=== PATIENT | male | born 1970 | race Caucasian/White ===

== ENCOUNTER 2016-04-03 19:33 | Inpatient (IN) | payer OTHER ==
[~2016-04-03] VITALS: Ht 188 cm; Wt 106.5 kg
[~2016-04-03 19:33] MED LIST: DOXY100T PO; SULF-154 PO; Z.0.NO CURRENT MEDS
[2016-04-03 19:56] VITALS: BP 115/82; PULSE 125; RESP 18; TEMP 101.4; O2SAT 98
[2016-04-03 20:09] VITALS: BP 123/83; PULSE 122; RESP 18; O2SAT 96
[2016-04-03] MEDS ORDERED: ONDANSETRON HCL 4 MG/2 ML VIAL IVP ONE (20:45)
[2016-04-03] MEDS ORDERED: SODIUM CHLORIDE 0.9% FLUSH 5 ML FLUSH IVF PRN (20:45)
--- NOTE | 2016-04-03 20:47 | PD ---
HPI Chief Complaint: GI Complaint Time Seen by Provider: 20:35 Travel History International Travel<30 days: No Contact w/Intl Traveler<30days: No Traveled to known affect area: No History of Present Illness HPI The patient is a 46-year-old male that complains of bilateral lower abdominal pain along with nausea and vomiting and some slight diarrhea since yesterday. The patient states he has stomach issues in the past and around the of this month has an appointment with gastroenterology for endoscopy. He states he did eat deer main that no one else had yesterday. He thinks he has had a fever area he denies vomiting any blood or any blood in the stool. He has never had any abdominal surgeries. His primary care physician is Dr. Julio Bryan at [facility]. [facility] Past Medical History Anxiety: Yes Diminished Hearing: No ?: Not Social History Alcohol Use: No Tobacco Use: Yes (1 PPD) Substance Use: No Allergies-Medications (Allergen,Severity, Reaction): Coded Allergies: Ciprofloxacin (Verified Allergy, Severe, RASH, 04/03/16) Reported Meds & Prescriptions Reported Meds & Active Scripts Active Review of Systems Except as stated in HPI: all other systems reviewed are Neg Physical Exam Narrative GENERAL: The patient is alert, oriented 3 in moderate apparent distress with his bilateral lower quadrant pain. His vital signs show temperature 101.4 with heart rate of 125 but are otherwise normal. He does appear moderately dehydrated. SKIN: Warm and dry. HEAD: Atraumatic. Normocephalic. EYES: Pupils equal and round. No scleral icterus. No injection or drainage. ENT: No nasal bleeding or discharge. Mucous membranes pink and slightly dry. NECK: Trachea midline. No JVD. There is no meningismus present. CARDIOVASCULAR: Regular rate and rhythm. No murmur appreciated. RESPIRATORY: No accessory muscle use. Clear to auscultation. Breath sounds equal bilaterally. GASTROINTESTINAL: Abdomen shows slight guarding in the bilateral lower quadrants to direct palpation, nondistended. Hepatic and splenic margins not palpable. No rebound is present. Direct palpation produces bilateral lower quadrant abdominal pain. MUSCULOSKELETAL: No obvious deformities. No clubbing. No cyanosis. No edema. NEUROLOGICAL: Awake and alert. No obvious cranial nerve deficits. Motor grossly within normal limits. Normal speech. PSYCHIATRIC: Appropriate mood and affect; insight and judgment normal. Data Data Last Documented VS Vital Signs Date Time Temp Pulse Resp B/P Pulse Ox O2 Delivery O2 Flow Rate FiO2 04/03/16 20:09 122 18 123/83 96 04/03/16 19:56 101.4 Orders Complete Blood Count With Diff (04/03/16 20:42) Comprehensive Metabolic Panel (04/03/16 20:42) Lipase (04/03/16 20:42) Urinalysis - C+S If Indicated (04/03/16 20:42) Ct Abd/Pel W Iv Contrast(Rout) (04/03/16 20:42) Iv Access Insert/Monitor (04/03/16 20:42) Ecg Monitoring (04/03/16 20:42) Oximetry (04/03/16 20:42) Ondansetron Inj (Zofran Inj) (04/03/16 20:45) Sodium Chloride 0.9% Flush (Ns Flush) (04/03/16 20:45) Iohexol 350 Inj (Omnipaque 350 Inj) (04/03/16 21:25) Metronidazole 500 Mg Inj (Flagyl 500 Mg (04/03/16 22:00) Ketorolac Inj (Toradol Inj) (04/03/16 22:00) Ampicillin-Sulbactam Inj (Unasyn Inj) (04/03/16 22:30) Labs Laboratory Tests Test 04/03/16 04/03/16 21:00 22:10 White Blood Count 18.7 TH/MM3 Red Blood Count 5.52 MIL/MM3 Hemoglobin 15.7 GM/DL Hematocrit 47.3 % Mean Corpuscular Volume 85.7 FL Mean Corpuscular Hemoglobin 28.5 PG Mean Corpuscular Hemoglobin 33.2 % Concent Red Cell Distribution Width 12.3 % Platelet Count 261 TH/MM3 Mean Platelet Volume 7.1 FL Neutrophils (%) (Auto) 88.4 % Lymphocytes (%) (Auto) 3.6 % Monocytes (%) (Auto) 5.3 % Eosinophils (%) (Auto) 0.1 % Basophils (%) (Auto) 2.6 % Neutrophils # (Auto) 16.5 TH/MM3 Lymphocytes # (Auto) 0.7 TH/MM3 Monocytes # (Auto) 1.0 TH/MM3 Eosinophils # (Auto) 0.0 TH/MM3 Basophils # (Auto) 0.5 TH/MM3 CBC Comment DIFF FINAL Differential Comment Sodium Level 137 MEQ/L Potassium Level 4.0 MEQ/L Chloride Level 100 MEQ/L Carbon Dioxide Level 25.8 MEQ/L Anion Gap 11 MEQ/L Blood Urea Nitrogen 13 MG/DL Creatinine 1.20 MG/DL Estimat Glomerular Filtration 65 ML/MIN Rate Random Glucose 134 MG/DL Calcium Level 8.7 MG/DL Total Bilirubin 0.8 MG/DL Aspartate Amino Transf 11 U/L (AST/SGOT) Alanine Aminotransferase 25 U/L (ALT/SGPT) Alkaline Phosphatase 86 U/L Total Protein 7.5 GM/DL Albumin 3.5 GM/DL Lipase 75 U/L Urine Collection Type CLEAN CATCH Urine Color YELLOW Urine Turbidity CLEAR Urine pH 5.5 Urine Specific [place] GREATER THAN 1.035 Urine Protein NEG mg/dL Urine Glucose (UA) NEG mg/dL Urine Ketones NEG mg/dL Urine Occult Blood TRACE Urine Nitrite NEG Urine Bilirubin NEG Urine Leukocyte Esterase NEG Urine RBC 0-3 /hpf Urine Squamous Epithelial 0-5 /hpf Cells Urine Mucus FEW /lpf Microscopic Urinalysis Comment CULT NOT INDICATED MDM Medical Decision Making Medical Screen Exam Complete: Yes Emergency Medical Condition: Yes Medical Record Reviewed: Yes Interpretation(s) The CBC shows a white count of 18,700 with 88% neutrophils but is otherwise unremarkable. The complete metabolic profile shows a glucose of 134, GFR of 65 but is otherwise normal. Lipase is normal. The CT abdomen/pelvis with IV contrast shows acute diverticulitis involving the mid sigmoid colon with moderate collection of extraluminal air in the region of the focal diverticulitis. Differential Diagnosis Acute diverticulitis with perforation, acute diverticulitis with perforation/ abscess formation, acute diverticulitis uncomplicated, colitis, acute appendicitis, sepsis Narrative Course The patient has acute diverticulitis with perforation. There is no evidence of abscess formation at this time. This certainly is consistent with the patient' s clinical findings of guarding in the lower quadrants. Plan: The patient will be admitted to the [facility] service. He will be given IV Flagyl 500 mg 3 times daily and 3 g Unasyn. The patient will be admitted to Dr. Fer Rojo. Procedures EKG Prior to Arrival: No EKG Not Completed: EKG Not Medically Necessary Sepsis Criteria SIRS Criteria (2 or more): Temp > 100.9 or < 96.8, Heart rate over 90, WBC > 36589, < 4000 or > 10% bands Sepsis Criteria (SIRS+source): Infect source susp/known Diagnosis Primary Impression: Diverticulitis of colon with perforation Admitting Information Admitting Physician Requests: Admit Solo Curry MD Apr 03, 2016 20:47
[2016-04-03 21:06] LABS: AUTOMATED NEUTROPHIL # 16.5 TH/MM3 (1.8-7.7); BASOPHIL # 0.5 TH/MM3 (0-0.2); BASOPHIL % 2.6 % (0.0-2.0); EOSINOPHIL % 0.1 % (0.0-4.0); HEMATOCRIT 47.3 % (39.0-51.0); LYMPH % 3.6 % (9.0-44.0); LYMPHOCYTE # 0.7 TH/MM3 (1.0-4.8); MEAN CELL VOLUME 85.7 FL (80.0-100.0); MEAN CORPUSCULAR HEMOGLOBIN 28.5 PG (27.0-34.0); MEAN CORPUSCULAR HGB CONC 33.2 % (32.0-36.0); MONO % 5.3 % (0.0-8.0); NEUT % 88.4 % (16.0-70.0); PLATELET COUNT 261 TH/MM3 (150-450); RED BLOOD COUNT 5.52 MIL/MM3 (4.50-5.90); RED CELL DISTRIBUTION WIDTH 12.3 % (11.6-17.2); WHITE BLOOD COUNT 18.7 TH/MM3 (4.0-11.0)
[2016-04-03 21:17] LABS: HEMO FLAGS DIFF FINAL
[2016-04-03 21:20] LABS: CHLORIDE 100 MEQ/L (98-107); SODIUM (NA) 137 MEQ/L (136-145)
[2016-04-03 21:24] LABS: ANION GAP 11 MEQ/L (5-15); BICARBONATE 25.8 MEQ/L (21.0-32.0); BLOOD UREA NITROGEN 13 MG/DL (7-18)
[2016-04-03] MEDS ORDERED: IOHEXOL 350 MG/ML 10 ML VIAL (for RAD DIAG) IV ONE (21:25)
[2016-04-03 21:27] LABS: ALT (GPT) 25 U/L (12-78); AST (GOT) 11 U/L (15-37); GLOMERULAR FILTRATION RATE 65 ML/MIN (>89)
[2016-04-03 21:28] LABS: TOTAL BILIRUBIN ADULT 0.8 MG/DL (0.2-1.0)
[2016-04-03 21:29] LABS: ALKALINE PHOSPHATASE 86 U/L (45-117)
--- NOTE | 2016-04-03 21:43 | RADHPO ---
EXAM DATE/TIME: 04/03/2016 21:04 [place] COMPARISON: No previous studies available for comparison. INDICATIONS : Bilateral mid lower quadrant pain for two days. IV CONTRAST: 95 cc Omnipaque 300 (iohexol) IV ORAL CONTRAST: No oral contrast ingested. RADIATION DOSE: 17.94 CTDIvol (mGy) MEDICAL HISTORY : None SURGICAL HISTORY : None. ENCOUNTER: Initial ACUITY: 2 days PAIN SCALE: 7/10 LOCATION: Bilateral lower quadrant TECHNIQUE: Volumetric scanning of the abdomen and pelvis was performed. Using automated exposure control and ad justment of the mA and/or kV according to patient size, radiation dose was kept as low as reasonably achievable to obtain optimal diagnostic quality images. FINDINGS: LOWER LUNGS: The visualized lower lungs are clear. LIVER: Homogeneous density without lesion. There is no dilation of the biliary tree. No calcified gallston es. SPLEEN: Normal size without lesion. PANCREAS: Within normal limits. KIDNEYS: Normal in size and shape. There is no mass, stone or hydronephrosis. ADRENAL GLANDS: Within normal limits. VASCULAR: There is no aortic aneurysm. BOWEL/MESENTERY: There is evidence of acute diverticulitis involving the mid sigmoid colon with a moderate collection of extraluminal air in the region of the focal diverticulitis suggesting localized perforation. No ex traluminal fluid is identified. Dr. Curry was called with the findings of the examination at 9:40 PM on 04/03/16. The appendix is normal. ABDOMINAL WALL: Within normal limits. RETROPERITONEUM: There is no lymphadenopathy. BLADDER: No wall thickening or mass. REPRODUCTIVE: Within normal limits. INGUINAL: There is no lymphadenopathy or hernia. MUSCULOSKELETAL: Within normal limits for patient age. CONCLUSION: Acute diverticulitis involving the mid sigmoid colon with a moderate collection of ex traluminal air in the region of the focal diverticulitis suggesting localized perforation. No extralu wei fluid is identified. Dr. Curry was called with the findings of the examination at 9:40 PM on 04/03/16. Neri Parra MD on April 03, 2016 at 21:35 Board Certified Radiologist. This report was verified electronically.
[2016-04-03] MEDS ORDERED: metroNIDAZOLE 500 MG INJ 100 ML IV ONE (22:00)
[2016-04-03] MEDS ORDERED: KETOROLAC TROMETHAMINE 60 MG/2 ML (IM) VIAL IVP ONE (22:00)
[2016-04-03 22:16] LABS: BLOOD, URINE TRACE (NEG); GLUCOSE,URINE NEG (NEG); KETONE, URINE NEG (NEG); NITRITE,URINE NEG (NEG); PH, URINE 5.5 (5.0-8.5)
[2016-04-03 22:25] LABS: METHOD OF COLLECTION CLEAN CATCH; URINE COLOR YELLOW (YELLW/STRAW)
[2016-04-03 22:26] LABS: MUCUS URINE FEW /lpf (OCC)
[2016-04-03 22:27] LABS: COMMENT (UR) CULT NOT INDICATED; CULTURE IF INDICATED CULT NOT INDICATED; RBC, URINE 0-3 /hpf (0-3); SQUAMOUS EPITHELIAL CELL URINE 0-5 /hpf (0-5)
[2016-04-03] MEDS ORDERED: ACETAMINOPHEN 325 MG TAB PO PRN (22:30)
[2016-04-03] MEDS ORDERED: SODIUM CHLORIDE 0.9% FLUSH 5 ML FLUSH IV PRN (22:30)
[2016-04-03] MEDS ORDERED: AMPICILLIN-SULBACTAM INJ 3 GM in SODIUM CHLORIDE 0.9% INJ 100 ML IV ONE (22:30)
[2016-04-03] MEDS ORDERED: FLUO-1 PO (22:35)
[2016-04-03] MEDS ORDERED: ONDANSETRON HCL 4 MG/2 ML VIAL IV ONE (23:00)
[2016-04-03] MEDS ORDERED: AMPICILLIN-SULBACTAM INJ 3 GM in SODIUM CHLORIDE 0.9% INJ 100 ML IV SCH (23:00)
[2016-04-03] MEDS: PANTOPRAZOLE SODIUM 40 MG VIAL IV PUSH SCH (23:00)
[2016-04-03] MEDS ORDERED: HYDROmorphone HCL PF 1 MG/ML VIAL IVP ONE (23:00)
[2016-04-03 23:10] VITALS: BP 98/56; PULSE 92; RESP 16; O2SAT 98
[2016-04-03 23:13] VITALS: BP 98/56; PULSE 92; RESP 16; O2SAT 98
[2016-04-03] MEDS: SODIUM CHLOR 0.9% 1000 ML INJ 1,000 ML IV SCH (23:20)
[2016-04-04] VITALS (7 sets, daily range): BP systolic 109–138; BP diastolic 72–81; PULSE 79–107; RESP 16–20; TEMP 97.5–99.5; O2SAT 94–97
[2016-04-04] MEDS: ACETAMINOPHEN/HYDROcodone 325 MG/5 MG TAB PO PRN ×3 (01:20→09:25)
[2016-04-04] MEDS ORDERED: AMPICILLIN-SULBACTAM INJ 3 GM in SODIUM CHLORIDE 0.9% INJ 100 ML IV SCH (05:00)
[2016-04-04] MEDS: SODIUM CHLOR 0.9% 1000 ML INJ 1,000 ML IV SCH ×3 (05:11→18:24)
[2016-04-04 06:21] LABS: AUTOMATED NEUTROPHIL # 12.2 TH/MM3 (1.8-7.7); BASOPHIL # 0.1 TH/MM3 (0-0.2); BASOPHIL % 0.7 % (0.0-2.0); EOSINOPHIL % 0.1 % (0.0-4.0); HEMATOCRIT 41.8 % (39.0-51.0); HEMO FLAGS DIFF FINAL; LYMPH % 8.7 % (9.0-44.0); LYMPHOCYTE # 1.3 TH/MM3 (1.0-4.8); MEAN CELL VOLUME 85.4 FL (80.0-100.0); MEAN CORPUSCULAR HEMOGLOBIN 29.6 PG (27.0-34.0); MEAN CORPUSCULAR HGB CONC 34.7 % (32.0-36.0); MONO % 10.2 % (0.0-8.0); NEUT % 80.3 % (16.0-70.0); PLATELET COUNT 233 TH/MM3 (150-450); RED CELL DISTRIBUTION WIDTH 12.1 % (11.6-17.2); WHITE BLOOD COUNT 15.1 TH/MM3 (4.0-11.0)
[2016-04-04 06:25] LABS: POTASSIUM 3.8 MEQ/L (3.5-5.1)
[2016-04-04 06:29] LABS: BICARBONATE 28.8 MEQ/L (21.0-32.0)
[2016-04-04] MEDS: SODIUM CHLORIDE 0.9% FLUSH 5 ML FLUSH IV SCH ×2 (08:13→20:51)
[2016-04-04] MEDS: ONDANSETRON HCL 4 MG/2 ML VIAL IV PRN (09:29)
[2016-04-04] MEDS: ALPRAZolam 0.25 MG TAB PO PRN ×2 (10:37→20:58)
--- NOTE | 2016-04-04 10:51 | MH ---
cc: ROSELINE PECK M.D. DATE OF ADMISSION: 04/03/2016 ADMISSION DIAGNOSIS Diverticulitis with perforation. HISTORY OF PRESENT ILLNESS Mr. Carrillo is a very pleasant 46-year-old gentleman who presented to the emergency room on Monday night after developing cramping abdominal pain the day prior. He states that he has been in fairly good health until the day prior to admission when he started feeling some abdominal cramping. He thought he might have been constipated, tried taking something to help him move his bowels, this did not relieve his symptoms. He also developed some nausea and what he felt like he might have been feverish. His symptoms continued to worsen until finally he presented to the emergency room. He denies any black or bloody stools. He does not have a history of problems with constipation or diarrhea regularly. He says his only GI problem is nausea after he eats and he tells me he is actually scheduled to see GI and a possible endoscopy later on this month. He states the pain with the nausea and vomiting was what prompted him to come to the emergency room as he normally does not seek medical attention. PAST MEDICAL HISTORY Past medical history is significant for anxiety. He has had no prior surgeries. ALLERGIES CIPRO. MEDICATIONS Medications include: Prozac, he is not sure of the dose, he says it is basically the regular dose people are on. HABITS He is a prior smoker. He does not consume alcohol. SOCIAL HISTORY He works for [employer] He has family locally. He is independent in activities of daily living. FAMILY HISTORY There is a family history of diabetes and heart disease. REVIEW OF SYSTEMS He denies chest pain, shortness of breath, cough or palpitations. He has not been lightheaded or dizzy when he has gotten up from the bed. He does say he is urinating and voiding well. He has no problems with lower extremity swelling or pain. PHYSICAL EXAMINATION VITAL SIGNS: Temperature is 98.4, pulse of 88, respirations 16, blood pressure is 115/75, pulse ox is 95% on room air. GENERAL: This is a very pleasant gentleman lying in the hospital bed. He is alert and oriented, cooperative. HEENT: He is normocephalic and atraumatic. EOM is intact. He has dry oral mucosa. His cheeks are a little bit flushed. NECK: His neck is supple. LUNGS: Clear to auscultation bilaterally. CARDIAC: His heart is regular. He is not tachycardic at this moment. ABDOMEN: Diminished bowel sounds, is diffusely tender in the mid to lower abdomen bilaterally, more pronounced in the left lower quadrant. He does have some guarding. EXTREMITIES: Show no clubbing, cyanosis or edema. LABORATORY DATA White count when he presented was 18.7 with a hemoglobin of 15.7, hematocrit of 47.3, platelet count of 261. Sodium was 137, potassium 4, BUN 13 with a creatinine of 1.2. LFTs were normal. His urine specific gravity was greater than 1.035. IMAGING STUDIES CT scan that was done is remarkable for acute diverticulitis involving the mid sigmoid colon with moderate collection of extraluminal air in the region of focal diverticulitis with localized perforation. There was no extraluminal fluid. ASSESSMENT/PLAN 46-year-old gentleman presenting with acute diverticulitis with perforation. At this point he has been admitted. He has been started on IV fluids. He is ALLERGIC TO CIPRO so he has been given Unasyn. We might change that to Zosyn. Maintain pain control. Colorectal surgery has been consulted. Continue to monitor him closely, monitor his vital signs and his abdominal exam closely. For his anxiety he did request something for his nerves as he is very apprehensive with the entire situation. I will try to determine the amount of Prozac he normally is on, as well as give him a low dose anxiolytic. Further recommendations as the case develops. Roseline Peck MD CSL/TLL /10:18 AM /10:36 AM
[2016-04-04] MEDS ORDERED: AMPICILLIN/SULBAC 3 GM/NS 100 ML IV SCH ×2 (11:00)
[2016-04-04 11:16] LABS: APTT (PATIENT) 30.2 SEC (24.3-30.1); INTERNATIONAL NORMALIZED RATIO 1.1 RATIO; PROTHROMBIN TIME - PATIENT 12.3 SEC (9.8-11.6)
[2016-04-04] MEDS: PIPERACIL-TAZO 3.375 GM PREMIX 50 ML IV SCH ×2 (12:31→17:46)
[2016-04-04] MEDS: oxyCODONE/ACETAMINOPHEN 7.5 MG/325 MG TAB PO PRN ×3 (13:47→21:02)
--- NOTE | 2016-04-04 15:27 | MB ---
cc: JOB GARZA M.D. DATE OF CONSULTATION: 04/04/2016 CHIEF COMPLAINT Diverticulitis with contained perforation. HISTORY OF PRESENT ILLNESS The patient is a 46-year-old male who began having pain Monday in his suprapubic area. This gradually worsened until it became severe on Monday and he came to the emergency room, where CT scan revealed diverticulitis with a micro perforation. He has a long history of nausea and is actually scheduled for an EGD to evaluate this later this month. He did have some nausea and vomiting. He had some low grade temperatures, as well as one temperature to 101. He denies any diarrhea or constipation, but has not had a bowel movement for about two days as he has not been eating. He has not had any previous attacks of diverticulitis, although his mother does have diverticulosis. He is not sure whether she has had diverticulitis. He has an aunt with colon cancer, but no direct family history of colon cancer or polyps. He has not yet had a colonoscopy. PAST MEDICAL HISTORY None. PAST SURGICAL HISTORY None. ALLERGIES None. MEDICATIONS Prozac. SOCIAL HISTORY The patient denies tobacco or alcohol. REVIEW OF SYSTEMS The review of systems is negative for headache, change in mood or mentation, shortness of breath, cough, chest pain, palpitations, dizziness or lightheadedness, dysuria, hematuria, difficulty with mobility or ambulation. PHYSICAL EXAMINATION GENERAL: A pleasant male in no apparent distress. NEUROLOGIC: Grossly intact. SKIN: Warm and dry. HEAD: Normocephalic, atraumatic. CARDIOVASCULAR: Regular rate. CHEST: Breathing is symmetric bilaterally and non-labored. ABDOMEN: Soft, nondistended. The patient is tender along the left side and particularly in the suprapubic area and left lower quadrant. There is no rebound. There is mild intentional guarding. EXTREMITIES: No edema. LABORATORY DATA Laboratory work reveals a white count of 15.1, hemoglobin of 14.5 and platelets of 233. Chemistry from today is essentially normal with a glucose of 107. Urinalysis is negative. IMAGING DATA CT scan is significant for acute diverticulitis involving the mid sigmoid colon with a moderate collection of extraluminal air in a region of focal diverticulitis, consistent with localized perforation. There is no extraluminal fluid. IMPRESSION Diverticulitis with contained perforation. PLAN The natural history of diverticular disease was discussed with the patient, as were the indications for surgery. Due to his complicated diverticulitis with a contained perforation, the preferred treatment plan would involve cooling him off with antibiotics until we can heal his current episode of diverticulitis, and plan for interval colectomy down the road. I have spoken with him about the indications for surgery and why this is indicated in his case. He will need a colonoscopy prior to his surgery as well. If, however, he fails to improve or worsens, he may need more emergent surgery and this was discussed as well. Thank you very much for your kind referral. I will continue to follow along with you. MD BENEDICT Jett/YOMAIRA /2:04 PM /3:19 PM TOAN
[2016-04-04] MEDS: PANTOPRAZOLE SODIUM 40 MG VIAL IV PUSH SCH (20:58)
[2016-04-05] VITALS (7 sets, daily range): BP systolic 116–128; BP diastolic 67–95; PULSE 93–121; RESP 18–22; TEMP 97.5–100.6; O2SAT 92–96
[2016-04-05] MEDS: PIPERACIL-TAZO 3.375 GM PREMIX 50 ML IV SCH ×5 (00:23→23:35)
[2016-04-05] MEDS: SODIUM CHLOR 0.9% 1000 ML INJ 1,000 ML IV SCH ×4 (01:05→21:57)
[2016-04-05] MEDS: oxyCODONE/ACETAMINOPHEN 7.5 MG/325 MG TAB PO PRN ×4 (05:09→20:06)
[2016-04-05] MEDS: ONDANSETRON HCL 4 MG/2 ML VIAL IV PRN ×2 (05:11→15:20)
[2016-04-05 06:32] LABS: AUTOMATED NEUTROPHIL # 11.7 TH/MM3 (1.8-7.7); BASOPHIL % 0.2 % (0.0-2.0); HEMATOCRIT 38.6 % (39.0-51.0); HEMO FLAGS DIFF FINAL; LYMPH % 8.9 % (9.0-44.0); LYMPHOCYTE # 1.2 TH/MM3 (1.0-4.8); MEAN CELL VOLUME 85.8 FL (80.0-100.0); MEAN CORPUSCULAR HEMOGLOBIN 29.9 PG (27.0-34.0); MEAN CORPUSCULAR HGB CONC 34.9 % (32.0-36.0); MONO % 7.1 % (0.0-8.0); NEUT % 83.8 % (16.0-70.0); PLATELET COUNT 194 TH/MM3 (150-450); RED BLOOD COUNT 4.49 MIL/MM3 (4.50-5.90); RED CELL DISTRIBUTION WIDTH 11.8 % (11.6-17.2); WHITE BLOOD COUNT 13.9 TH/MM3 (4.0-11.0)
[2016-04-05 06:33] LABS: CHLORIDE 104 MEQ/L (98-107); POTASSIUM 3.7 MEQ/L (3.5-5.1); SODIUM (NA) 138 MEQ/L (136-145)
[2016-04-05 06:46] LABS: ALKALINE PHOSPHATASE 63 U/L (45-117); ALT (GPT) 13 U/L (12-78); ANION GAP 10 MEQ/L (5-15); AST (GOT) 8 U/L (15-37); BICARBONATE 23.6 MEQ/L (21.0-32.0); BLOOD UREA NITROGEN 12 MG/DL (7-18); GLOMERULAR FILTRATION RATE 65 ML/MIN (>89)
[2016-04-05] MEDS: SODIUM CHLORIDE 0.9% FLUSH 5 ML FLUSH IV SCH ×2 (09:00→21:57)
[2016-04-05] MEDS: FLUoxetine HCL 20 MG CAP PO SCH (09:26)
--- NOTE | 2016-04-05 10:18 | HHI.PR ---
Subjective Remarks trouble sleeping at night, abdomen a little more bothersome today, didnt know he had to ask for pain medication, ambulated the [place] yesterday and was passing kimberly, voiding well Objective Vitals Vital Signs Date Time Temp Pulse Resp B/P Pulse Ox O2 Delivery O2 Flow Rate FiO2 04/05/16 08:00 97.5 95 18 124/75 95 04/05/16 04:00 98.8 121 22 123/80 94 04/05/16 00:00 100.3 108 20 126/79 92 04/04/16 20:00 99.5 85 20 121/76 94 04/04/16 20:00 107 04/04/16 16:00 98.4 80 16 115/75 96 04/04/16 12:00 98.1 83 16 138/81 96 04/04/16 04/04/16 04/05/16 15:00 23:00 07:00 Intake Total 1866 ml 280 ml 2169 ml Output Total 750 ml 150 ml 550 ml Balance 1116 ml 130 ml 1619 ml Intake Oral 600 ml 280 ml 140 ml IV Total 1266 ml 2029 ml Output Urine Total 750 ml 150 ml 550 ml # Voids 1 1 # Bowel Movements 1 0 Result Diagram: 04/05/1630 04/05/16 05 Imaging Last Impressions Abdomen/Pelvis CT 04/03/162041 Signed Impressions: Service Date/Time: Sunday, April 03, 2016 21:04 - CONCLUSION: Acute diverticulitis involving the mid sigmoid colon with a moderate collection of extraluminal air in the region of the focal diverticulitis suggesting localized perforation. No extraluminal fluid is identified. Dr. Curry was called with the findings of the examination at 9:40 PM on 04/03/16. Neri Parra MD Objective Remarks lying in bed alert but looks tired lungs clear heart regular not tachycardic abdomen diminished bowel sounds baller tender left lower left mid abdomen more then right no edema A/P Problem List: (1) Diverticulitis of colon with perforation Status: Acute Plan: Seen by Dr Caceres yesterday, continue with iv antibiotics, iv fluids pain control, low grade temp yesterday white count coming down (2) Anxiety Status: Acute Plan: on alprazolam, prozac resumed Roseline Garcia MD Apr 05, 2016 10:18
--- NOTE | 2016-04-05 14:26 | EKG ---
Date Performed: 04/04/2016 Time Performed: 10:41:38 PTAGE: 46 years EKG: Sinus rhythm . Anterior T wave changes are nonspecific Borderline ECG PREVIOUS TRACING : 07/14/2009 09.14 DOCTOR: Huber Hernandez Interpretating Date/Time 04/05/2016 14:24:45
[2016-04-05] MEDS: ALPRAZolam 0.25 MG TAB PO PRN (15:24)
--- NOTE | 2016-04-05 16:52 | HHI.PR ---
Subjective Remarks Diverticulitis with contained perforation Less pain than yesterday, still no BM Objective Vital Signs Date Time Temp Pulse Resp B/P Pulse Ox O2 Delivery O2 Flow Rate FiO2 04/05/16 16:24 18 04/05/16 12:00 98.1 94 18 128/95 96 04/05/16 08:00 97.5 95 18 124/75 95 04/05/16 04:00 98.8 121 22 123/80 94 04/05/16 00:00 100.3 108 20 126/79 92 04/04/16 20:00 99.5 85 20 121/76 94 04/04/16 20:00 107 I/O 04/04/16 04/04/16 04/04/16 04/05/16 04/05/16 04/05/16 07:00 15:00 23:00 07:00 15:00 23:00 Intake Total 700 ml 1866 ml 280 ml 2169 ml Output Total 750 ml 150 ml 550 ml Balance 700 ml 1116 ml 130 ml 1619 ml Intake Oral 600 ml 280 ml 140 ml IV Total 700 ml 1266 ml 2029 ml Output Urine Total 750 ml 150 ml 550 ml # Voids 1 1 # Bowel Movements 1 0 Result Diagram: 04/05/1630 04/05/16 0530 Objective Remarks Abdomen softer, still moderately tender LLQ Assessment and Plan Assessment and Plan Still with low grade temp Add gentle laxative Try clears tomorrow Yoly Caceres MD Apr 05, 2016 16:52
[2016-04-05] MEDS: POLYETHYLENE GLYCOL 17 GM PKG PO SCH (17:20)
[2016-04-05] MEDS: PANTOPRAZOLE SODIUM 40 MG VIAL IV PUSH SCH (21:56)
[2016-04-06] VITALS (7 sets, daily range): BP systolic 117–140; BP diastolic 72–85; PULSE 74–98; RESP 18–20; TEMP 96–99.6; O2SAT 93–96
[2016-04-06] MEDS: oxyCODONE/ACETAMINOPHEN 7.5 MG/325 MG TAB PO PRN ×2 (00:28→07:56)
[2016-04-06] MEDS: PIPERACIL-TAZO 3.375 GM PREMIX 50 ML IV SCH ×4 (05:29→23:56)
[2016-04-06] MEDS: SODIUM CHLOR 0.9% 1000 ML INJ 1,000 ML IV SCH ×2 (05:30→07:56)
[2016-04-06] MEDS: FLUoxetine HCL 20 MG CAP PO SCH (07:55)
[2016-04-06] MEDS: ONDANSETRON HCL 4 MG/2 ML VIAL IV PRN ×2 (07:55→16:57)
[2016-04-06] MEDS: POLYETHYLENE GLYCOL 17 GM PKG PO SCH (07:56)
[2016-04-06] MEDS: SODIUM CHLORIDE 0.9% FLUSH 5 ML FLUSH IV SCH ×2 (07:56→22:06)
--- NOTE | 2016-04-06 10:28 | HHI.PR ---
Subjective Remarks Feeling better today, did well with clear liquids, has had 2 bowel movements, small , ambulated in [place] yesterday, would like percocet changed back to lortab as he feels pain is better and percocet makes him sleepy Objective Vitals Vital Signs Date Time Temp Pulse Resp B/P Pulse Ox O2 Delivery O2 Flow Rate FiO2 04/06/16 04:00 97.4 87 18 117/77 94 04/06/16 02:13 20 04/06/16 00:00 96.0 98 18 133/72 95 04/05/16 21:00 93 04/05/16 20:00 100.6 93 18 120/72 94 04/05/16 16:00 99.5 94 18 116/67 96 04/05/16 12:00 98.1 94 18 128/95 96 04/05/16 04/05/16 04/06/16 15:00 23:00 07:00 Intake Total 0 ml 1900 ml Output Total 400 ml Balance 0 ml 1500 ml Intake Oral 0 ml IV Total 1900 ml Output Urine Total 400 ml # Voids 3 Result Diagram: 04/05/16 0530 04/05/16 0530 Imaging Last Impressions Abdomen/Pelvis CT 04/03/162041 Signed Impressions: Service Date/Time: Sunday, April 03, 2016 21:04 - CONCLUSION: Acute diverticulitis involving the mid sigmoid colon with a moderate collection of extraluminal air in the region of the focal diverticulitis suggesting localized perforation. No extraluminal fluid is identified. Dr. Curry was called with the findings of the examination at 9:40 PM on 04/03/16. Neri Parra MD Objective Remarks lying in bed no acute distress lungs clear heart regular not tachycardic abdomen good bowel sounds decreased tenderness llq no edema A/P Problem List: (1) Diverticulitis of colon with perforation Status: Acute Plan: continue with iv antibiotics, iv fluids pain control, low grade temp yesterday white count coming down. tolerating clear liquids, clinically appears to be improving (2) Anxiety Status: Acute Plan: on alprazolam, prozac resumed Roseline Garcia MD Apr 06, 2016 10:27
[2016-04-06] MEDS: ACETAMINOPHEN/HYDROcodone 325 MG/5 MG TAB PO PRN ×3 (12:13→22:08)
--- NOTE | 2016-04-06 13:14 | HHI.PR ---
Subjective Remarks Diverticulitis with contained perforation Passing stool More comfortable Objective Vital Signs Date Time Temp Pulse Resp B/P Pulse Ox O2 Delivery O2 Flow Rate FiO2 04/06/16 12:00 97.1 82 20 130/83 95 04/06/16 08:00 74 04/06/16 08:00 99.6 94 20 140/78 94 04/06/16 04:00 97.4 87 18 117/77 94 04/06/16 02:13 20 04/06/16 00:00 96.0 98 18 133/72 95 04/05/16 21:00 93 04/05/16 20:00 100.6 93 18 120/72 94 04/05/16 16:00 99.5 94 18 116/67 96 I/O 04/05/16 04/05/16 04/05/16 04/06/16 04/06/16 04/06/16 07:00 15:00 23:00 07:00 15:00 23:00 Intake Total 2169 ml 0 ml 1900 ml Output Total 550 ml 400 ml Balance 1619 ml 0 ml 1500 ml Intake Oral 140 ml 0 ml IV Total 2029 ml 1900 ml Output Urine Total 550 ml 400 ml # Voids 3 # Bowel Movements 0 Result Diagram: 04/05/1630 04/05/1630 Objective Remarks Signficantly less tenderness Assessment and Plan Assessment and Plan Advance to fulls in am Yoly Caceres MD Apr 06, 2016 13:14
[2016-04-06] MEDS: PANTOPRAZOLE SODIUM 40 MG VIAL IV PUSH SCH (22:04)
[2016-04-06] MEDS: ALPRAZolam 0.25 MG TAB PO PRN (22:08)
[2016-04-07] VITALS: BP 118/74; PULSE 81; RESP 18; TEMP 97.7; O2SAT 96
[2016-04-07 04:00] VITALS: BP 139/82; PULSE 78; RESP 18; TEMP 97; O2SAT 96
[2016-04-07] MEDS: ACETAMINOPHEN/HYDROcodone 325 MG/5 MG TAB PO PRN ×3 (04:38→19:36)
[2016-04-07] MEDS: PIPERACIL-TAZO 3.375 GM PREMIX 50 ML IV SCH (05:50)
[2016-04-07 06:06] LABS: AUTOMATED NEUTROPHIL # 5.2 TH/MM3 (1.8-7.7); BASOPHIL % 0.3 % (0.0-2.0); EOSINOPHIL # 0.1 TH/MM3 (0-0.4); EOSINOPHIL % 1.7 % (0.0-4.0); HEMATOCRIT 34.6 % (39.0-51.0); HEMO FLAGS DIFF FINAL; LYMPH % 16.5 % (9.0-44.0); LYMPHOCYTE # 1.2 TH/MM3 (1.0-4.8); MEAN CELL VOLUME 85.6 FL (80.0-100.0); MEAN CORPUSCULAR HEMOGLOBIN 29.3 PG (27.0-34.0); MEAN CORPUSCULAR HGB CONC 34.2 % (32.0-36.0); NEUT % 72.5 % (16.0-70.0); PLATELET COUNT 193 TH/MM3 (150-450); RED BLOOD COUNT 4.04 MIL/MM3 (4.50-5.90); RED CELL DISTRIBUTION WIDTH 11.8 % (11.6-17.2); WHITE BLOOD COUNT 7.3 TH/MM3 (4.0-11.0)
[2016-04-07] MEDS: POLYETHYLENE GLYCOL 17 GM PKG PO SCH (08:04)
[2016-04-07] MEDS: SODIUM CHLORIDE 0.9% FLUSH 5 ML FLUSH IV SCH ×2 (08:04→23:39)
[2016-04-07] MEDS: FLUoxetine HCL 20 MG CAP PO SCH (08:04)
[2016-04-07] MEDS: SODIUM CHLOR 0.9% 1000 ML INJ 1,000 ML IV SCH (08:43)
[2016-04-07 09:10] VITALS: BP 153/95; PULSE 75; RESP 18; TEMP 96.8; O2SAT 98
--- NOTE | 2016-04-07 10:39 | HHI.PR ---
Subjective Remarks Diverticulitis with contained perforation Better Objective Vital Signs Date Time Temp Pulse Resp B/P Pulse Ox O2 Delivery O2 Flow Rate FiO2 04/07/16 09:10 96.8 75 18 153/95 98 04/07/16 04:00 97.0 78 18 139/82 96 04/07/16 00:00 97.7 81 18 118/74 96 04/06/16 20:30 78 04/06/16 20:00 97.6 79 18 127/85 93 04/06/16 16:00 99.3 88 20 134/81 96 04/06/16 12:00 97.1 82 20 130/83 95 I/O 04/06/16 04/06/16 04/06/16 04/07/16 04/07/16 04/07/16 07:00 15:00 23:00 07:00 15:00 23:00 Intake Total 1900 ml 800 ml 220 ml Output Total 400 ml Balance 1500 ml 800 ml 220 ml Intake Oral 800 ml 120 ml IV Total 1900 ml 100 ml Output Urine Total 400 ml # Voids 4 2 # Bowel Movements 2 Result Diagram: 04/07/16 0520 04/05/16 0530 Objective Remarks mildly tender Assessment and Plan Assessment and Plan low residue diet change to po antibiotics Possibly home in am Yoly Caceres MD Apr 07, 2016 10:39
--- NOTE | 2016-04-07 12:24 | HHI.PR ---
Subjective Remarks pain improved, on full liquids,ambulating [place] Objective Vitals Vital Signs Date Time Temp Pulse Resp B/P Pulse Ox O2 Delivery O2 Flow Rate FiO2 04/07/16 09:10 96.8 75 18 153/95 98 04/07/16 04:00 97.0 78 18 139/82 96 04/07/16 00:00 97.7 81 18 118/74 96 04/06/16 20:30 78 04/06/16 20:00 97.6 79 18 127/85 93 04/06/16 16:00 99.3 88 20 134/81 96 04/06/16 04/06/16 04/07/16 15:00 23:00 07:00 Intake Total 800 ml 220 ml Balance 800 ml 220 ml Intake Oral 800 ml 120 ml IV Total 100 ml # Voids 4 2 # Bowel Movements 2 Result Diagram: 04/07/16 0520 04/05/16 0530 Imaging Last Impressions Abdomen/Pelvis CT 04/03/162041 Signed Impressions: Service Date/Time: Sunday, April 03, 2016 21:04 - CONCLUSION: Acute diverticulitis involving the mid sigmoid colon with a moderate collection of extraluminal air in the region of the focal diverticulitis suggesting localized perforation. No extraluminal fluid is identified. Dr. Curry was called with the findings of the examination at 9:40 PM on 04/03/16. Neri Parra MD Objective Remarks lying in bed no acute distress lungs clear heart regular not tachycardic abdomen good bowel sounds decreased tenderness llq no edema A/P Problem List: (1) Diverticulitis of colon with perforation Status: Acute Plan: switch to po antibiotics, monitor to ensure he tolerates them (2) Anxiety Status: Chronic Plan: on alprazolam, prozac resumed Assessment and Plan plan for d/c in am if continues to progress well Roseline Garcia MD Apr 07, 2016 12:24
[2016-04-07] MEDS: ONDANSETRON HCL 4 MG/2 ML VIAL IV PRN ×2 (12:38→19:39)
[2016-04-07] MEDS: CLINDAMYCIN 150 MG CAP PO SCH ×3 (12:38→23:38)
[2016-04-07] MEDS: SULFAMETHOXAZOLE-TRIMETHOPRIM DS 800-160 MG TAB PO SCH ×2 (12:38→19:36)
[2016-04-07 13:45] VITALS: BP 129/86; PULSE 74; RESP 16; TEMP 96.9; O2SAT 95
[2016-04-07 18:50] VITALS: BP 134/89; PULSE 77; RESP 15; TEMP 98.5; O2SAT 95
[2016-04-07] MEDS: ALPRAZolam 0.25 MG TAB PO PRN (19:36)
[2016-04-07 20:00] VITALS: BP 128/79; PULSE 72; PULSE 75; RESP 18; TEMP 97.6; O2SAT 96
[2016-04-07] MEDS: PANTOPRAZOLE SODIUM 40 MG VIAL IV PUSH SCH (23:38)
[2016-04-08] VITALS: BP 121/75; PULSE 72; RESP 16; TEMP 98.1; O2SAT 96
[2016-04-08 04:00] VITALS: BP 125/82; PULSE 79; RESP 16; TEMP 98; O2SAT 96
[2016-04-08] MEDS: CLINDAMYCIN 150 MG CAP PO SCH (05:58)
[2016-04-08] MEDS: ACETAMINOPHEN/HYDROcodone 325 MG/5 MG TAB PO PRN (06:01)
--- NOTE | 2016-04-08 06:54 | HHI.PR ---
Subjective Remarks Diverticulitis with contained perforation Minimal pain Objective Vital Signs Date Time Temp Pulse Resp B/P Pulse Ox O2 Delivery O2 Flow Rate FiO2 04/08/16 04:00 98.0 79 16 125/82 96 04/08/16 00:00 98.1 72 16 121/75 96 04/07/16 20:00 97.6 72 18 128/79 96 04/07/16 20:00 75 04/07/16 18:50 98.5 77 15 134/89 95 04/07/16 13:45 96.9 74 16 129/86 95 04/07/16 09:10 96.8 75 18 153/95 98 I/O 04/07/16 04/07/16 04/07/16 04/08/16 04/08/16 04/08/16 07:00 15:00 23:00 07:00 15:00 23:00 Intake Total 1620 ml 450 ml Balance 1620 ml 450 ml Intake Oral 1620 ml 450 ml # Voids 2 6 # Bowel Movements 1 Result Diagram: 04/07/16 0520 04/05/16 0530 Objective Remarks mildly tender Assessment and Plan Assessment and Plan Tolerating diet Did well on PO antibiotics OK to go home with followup with me next week, if ok with Yoly Berumen MD Apr 08, 2016 06:54
[2016-04-08 08:00] VITALS: PULSE 82
[2016-04-08 09:03] VITALS: BP 134/88; PULSE 65; RESP 15; TEMP 97.6; O2SAT 97
[2016-04-08] MEDS: SULFAMETHOXAZOLE-TRIMETHOPRIM DS 800-160 MG TAB PO SCH (09:52)
[2016-04-08] MEDS: POLYETHYLENE GLYCOL 17 GM PKG PO SCH (09:53)
[2016-04-08] MEDS: SODIUM CHLORIDE 0.9% FLUSH 5 ML FLUSH IV SCH (09:53)
[2016-04-08] MEDS: FLUoxetine HCL 20 MG CAP PO SCH (09:53)
[2016-04-08] MEDS: SODIUM CHLOR 0.9% 1000 ML INJ 1,000 ML IV SCH (10:25)
--- NOTE | 2016-04-08 10:48 | HHI.PR ---
Subjective Remarks Feeling much better, eager to go home. Objective Vitals Vital Signs Date Time Temp Pulse Resp B/P Pulse Ox O2 Delivery O2 Flow Rate FiO2 04/08/16 09:03 97.6 65 15 134/88 97 04/08/16 08:00 82 04/08/16 04:00 98.0 79 16 125/82 96 04/08/16 00:00 98.1 72 16 121/75 96 04/07/16 20:00 97.6 72 18 128/79 96 04/07/16 20:00 75 04/07/16 18:50 98.5 77 15 134/89 95 04/07/16 13:45 96.9 74 16 129/86 95 04/07/16 04/07/16 04/08/16 15:00 23:00 07:00 Intake Total 1620 ml 450 ml Balance 1620 ml 450 ml Intake Oral 1620 ml 450 ml # Voids 6 # Bowel Movements 1 Result Diagram: 04/07/16 0520 04/05/16 0530 Imaging Last Impressions Abdomen/Pelvis CT 04/03/162041 Signed Impressions: Service Date/Time: Sunday, April 03, 2016 21:04 - CONCLUSION: Acute diverticulitis involving the mid sigmoid colon with a moderate collection of extraluminal air in the region of the focal diverticulitis suggesting localized perforation. No extraluminal fluid is identified. Dr. Curry was called with the findings of the examination at 9:40 PM on 04/03/16. Neri Parra MD Objective Remarks lying in bed no acute distress, good spirits lungs clear heart regular not tachycardic abdomen good bowel sounds decreased tenderness llq no edema A/P Problem List: (1) Diverticulitis of colon with perforation Status: Acute Plan: switch to po antibioticstolerated them well, will discharge on po antibiotics , lortab for pain control (he is using it much less), will follow up with Dr Caceres next week (2) Anxiety Status: Chronic Plan: prozac resumed , he feels he will be able to go home without the alprazolam Assessment and Plan plan for d/c today Roseline Garcia MD Apr 08, 2016 10:48
[2016-04-08] MEDS ORDERED: POLY17S PO (11:03)
[2016-04-08] MEDS ORDERED: FLUO20CA4 PO (11:03)
[2016-04-08] MEDS ORDERED: CLIN150 PO (11:03)
[2016-04-08] MEDS ORDERED: ZOFR4TAB3 SL (11:03)
[2016-04-08] MEDS ORDERED: HYDR-3516 PO (11:03)
[2016-04-08] MEDS ORDERED: BACT800T5 PO (11:03)
--- NOTE | 2016-04-08 11:16 | HHI.DS ---
Discharge Summary Admission Date Apr 03, 2016 at 22:32 Discharge Date: Apr 08, 2016 Admitting Diagnosis diverticulitis with perforation (1) Diverticulitis of colon with perforation Diagnosis: Principal (2) Anxiety Diagnosis: Secondary Consultants Dr. Yoly Caceres Brief History Pt admitted via ER for abdominal pain, fever, nausea.His white count was elevated and his Ct scan showed sigmoid diverticulitis with microperforation, CBC/BMP: 04/07/16 0520 04/05/16 0530 Significant Findings Laboratory Tests Test 04/07/16 05:20 Red Blood Count 4.04 MIL/MM3 (4.50-5.90) Hemoglobin 11.8 GM/DL (13.0-17.0) Hematocrit 34.6 % (39.0-51.0) Neutrophils (%) (Auto) 72.5 % (16.0-70.0) Monocytes (%) (Auto) 9.0 % (0.0-8.0) PE at Discharge lying in bed no acute distress, good spirits lungs clear heart regular not tachycardic abdomen good bowel sounds decreased tenderness llq no edema Hospital Course Pt admitted, started on IV antibiotics, given bowel rest, hydration and pain control. Colorectal surgery was consulted and he was seen by Dr Yoly Caceres.He had good clinical response to treatment and at time of discharge it was recommended he be discharged on oral antibiotics with close follow up with her the following week for further disposition. He was very anxious on admission and apprehensive regarding the possible need for surgery, His prozac was resumed and initially he required alprazolam to sleep. At time of discharge he was doing much better with the prozac alone. Pt Condition on Discharge: Fair Discharge Disposition: Discharge Home Discharge Instructions DIET: Follow Instructions for: Full Liquid Diet (progress to regular diet gradually as tolerated) Activities you can perform: Regular-No Restrictions Follow up Referrals: Colorectal Surgery - 1 Week with Yoly Caceres MD PCP Follow-up - 2 Weeks with pcp New Medications: Ondansetron Odt (Zofran Odt) 4 Mg Tab 4 MG SL Q6HR PRN Nausea/Vomiting #30 Ref 0 TAB Clindamycin (Cleocin) 150 Mg Cap 450 MG PO Q6HR diverticulitis #40 CAP Fluoxetine (Fluoxetine) 20 Mg Cap 20 MG PO DAILY anxiety #30 CAP Hydrocodone-Acetaminophen (Hydrocodone-Acetaminophen) 5-325 mg Tab 1 TAB PO Q4H PRN PAIN 1 TO 10 #30 TAB Polyethylene Glycol 3350 Powder (Polyethylene Glycol 3350 Powder) 17 Gm Pow 17 GM PO DAILY constipation #30 PKT Sulfamethoxazole-Trimethoprim (Bactrim DS) 800-160 Mg Tab 1 TAB PO Q12HR diverticulitis #20 TAB Discontinued Medications: Fluoxetine (Prozac) 10 Mg Cap 10 MG PO DAILY #30 Ref 0 CAP Roseline Garcia MD Apr 08, 2016 11:16
== END 2016-04-08 11:56 | disposition home or self-care (01) | DRG 392 ==
LOC: PHED 19:33 → PHEDA 22:32 → PH3B 04-04 00:11
PROVIDERS: ADMIT Legal Medicine; ATTEND Legal Medicine
DX: K57.20 Diverticulitis of large intestine with perforation and abscess without bleeding (principal); F41.9 Anxiety disorder, unspecified; Z88.1 Allergy status to other antibiotic agents; Z87.891 Personal history of nicotine dependence; Z80.0 Family history of malignant neoplasm of digestive organs
CPT/HCPCS: 74177; 80048; 80053; 81001; 83690; 85025; 85610; 85730; 93005; 96365; 96375; C9113; J0295; J1170; J1885; J2405; J2543; J7030; Q9967

== ENCOUNTER 2016-06-23 15:45 | Inpatient (IN) | payer OTHER ==
[~2016-06-23] VITALS: Ht 188 cm; Wt 102.8 kg
[~2016-06-23 15:45] MED LIST changes: -DOXY100T PO; +FLUO20CA4 PO; +HYDR-3516 PO; +POLY17S PO; -SULF-154 PO; -Z.0.NO CURRENT MEDS; +ZOFR4TAB3 SL
[2016-07-01] MEDS ORDERED: PANT40TA3 PO (09:55)
[2016-07-08] VITALS (9 sets, daily range): BP systolic 123–138; BP diastolic 76–86; PULSE 77–118; RESP 16–20; TEMP 98.1–98.4; O2SAT 97–99
[2016-07-08] MEDS ORDERED: METRONIDAZOLE 500 MG/100 ML ISONTONIC SOLN IV PRN (06:45)
[2016-07-08] MEDS ORDERED: DEXT 5%-NACL 0.9% 1000 ML INJ 1,000 ML IV SCH (06:45)
[2016-07-08] MEDS ORDERED: ceFAZolin 2 GM PREMIX 50 ML IV SCH (06:45)
[2016-07-08] MEDS ORDERED: CHLORHEXIDINE GLUCONATE 2 % 1 PACK (2 CLOTHS) TOPICAL PRN (07:00)
[2016-07-08] MEDS ORDERED: METOPROLOL TARTRATE 25 MG TAB PO PRN (07:00)
[2016-07-08] MEDS ORDERED: SODIUM CHLORID 0.9% 500 ML IV PRN (07:00)
[2016-07-08] MEDS ORDERED: LACTATED RINGER'S 1000 ML IV PRN (07:00)
[2016-07-08] MEDS ORDERED: INSULIN HUMAN REGULAR 1,000 UNITS/10 ML VIAL SQ PRN (07:00)
[2016-07-08] MEDS ORDERED: POVIDONE IODINE 5% (ANTISEPSIS KIT) 4 APPLICATIONS EACH NARE PRN (07:00)
--- NOTE | 2016-07-08 07:25 | PD.HP.UP ---
H&P Update Note The Pre-Admit History and Physical Examination regarding the above named patient was reviewed (including, but not limited to, vital signs, heart, lungs, co-morbid conditions), and upon re-examination it is noted that: the patient's condition has not significantly changed since the last examination. Yoly Caceres MD Jul 08, 2016 07:25
[2016-07-08] MEDS ORDERED: fentaNYL CITRATE 250 MCG/5 ML AMP ONE ×2 (08:25→14:22)
[2016-07-08] MEDS ORDERED: ACETAMINOPHEN 1000 MG/100 ML VIAL IV ONE (08:25)
[2016-07-08] MEDS ORDERED: MIDAZOLAM HCL 2 MG/2 ML VIAL ONE (08:25)
[2016-07-08] MEDS ORDERED: FAMOTIDINE 20 MG/2 ML VIAL ONE (08:26)
[2016-07-08] MEDS ORDERED: HYDROmorphone HCL PF 2 MG/ML VIAL ONE (08:26)
--- NOTE | 2016-07-08 09:45 | PD.OP ---
Operative Report Date of Surgery: Jul 08, 2016 Preoperative Diagnosis: (1) Diverticulitis of colon with perforation Postoperative Diagnosis: (1) Diverticulitis of colon with perforation Procedure: Urologic procedures: Cystoscopy with placement of bilateral ureteral catheters. Anesthesia: General Surgeon: Pineda Adkins Field Advisor(s): None Operation and Findings: Indication for procedure: Consulted intraoperatively to pass bilateral ureteral catheters to aid in visualization of this patient's ureters during his colorectal procedure. Urologic surgery procedures in detail: Concurrent with the colorectal surgeon Dr. Caceres, I proceeded with placement of bilateral ureteral catheters as follows. Initially cystoscopic evaluation was performed utilizing the rigid cystoscope with the 20 [place] sheath and 30 lens. Both right and left ureteral orifices were correct anatomic position effluxing clear yellow urine. There were no bladder mucosal lesions calculi or diverticula formation. There was no evidence of fistula formation. I then proceeded with passing the left ureteral catheters follows initially a sensor 0.035 wire was advanced up the patient's left ureter and then a 6 [place] open-ended ureteral catheter was advanced over the wire 25 cm in a cephalad direction. With the catheter in place the wire was withdrawn and reintroduced through secondary site by the cystoscope. In similar fashion the contralateral side was accomplished. With both catheters in place the wire and cystoscope were withdrawn and a 16 [place] 10 cc [place] catheter was placed. The ureteral catheters were next anchored to the [place] via a connector. All 3 catheters were then placed to gravity drainage. This completes the urologic surgery portion of combined procedures on this patient. Pineda Adkins MD Jul 08, 2016 09:45
[2016-07-08] MEDS ORDERED: ONDANSETRON HCL 4 MG/2 ML VIAL IV PUSH ONE (09:48)
[2016-07-08] MEDS ORDERED: SUGAMMADEX SODIUM 200 MG/2 ML VIAL IV PUSH ONE ×2 (09:48)
[2016-07-08] MEDS ORDERED: NEOSTIGMINE 3 MG/3 ML SYR IV ONE (09:48)
[2016-07-08] MEDS ORDERED: ePHEDrine/NS 25 MG/5 ML SYR IV ONE (09:48)
[2016-07-08] MEDS ORDERED: LACTATED RINGER'S 1000 ML INJ 1,000 ML IV ONE (09:48)
[2016-07-08] MEDS ORDERED: NORMOSOL R INJ 2,000 ML IV ONE (09:49)
[2016-07-08] MEDS ORDERED: PROPOFOL 200 MG/20 ML AMP IV ONE (12:00)
[2016-07-08] MEDS ORDERED: ceFAZolin INJ 1,000 MG VIAL IV ONE (13:10)
[2016-07-08] MEDS ORDERED: POTASSIUM CHLOR 20 MEQ PREMIX 100 ML IV PRN (14:15)
[2016-07-08] MEDS ORDERED: POTASSIUM CHLOR 40 MEQ PREMIX 100 ML IV PRN (14:15)
[2016-07-08] MEDS ORDERED: BENZOCAINE 6 MG/MENTHOL 10 MG LOZENGE BUCCAL PRN (14:15)
[2016-07-08] MEDS ORDERED: ENALAPRILAT 1.25 MG/ML VIAL IV PRN (14:15)
[2016-07-08] MEDS ORDERED: ACETAMINOPHEN 325 MG TAB PO PRN (14:15)
[2016-07-08] MEDS ORDERED: Post-op Orders (for Pharmacy) MISC XX ONE (14:15)
[2016-07-08] MEDS ORDERED: SODIUM CHLORIDE 0.9% FLUSH 5 ML FLUSH IVF PRN (14:15)
[2016-07-08] MEDS ORDERED: NALOXONE HCL 0.4 MG/ML AMP IV PRN (14:15)
[2016-07-08] MEDS ORDERED: diphenhydrAMINE HCL 50 MG/ML VIAL IV PRN (14:15)
[2016-07-08] MEDS ORDERED: ENALAPRILAT 2.5 MG/2 ML VIAL IV PRN (14:15)
[2016-07-08] MEDS ORDERED: DO NOT ADM ANY ANTICOAGULANT DRUGS PRN (14:35)
[2016-07-08] MEDS ORDERED: *morphine SULFATE 8 MG/ML PERIprocedure ONLY ONE ×3 (14:42→15:06)
[2016-07-08] MEDS ORDERED: *ONDANSETRON 4 MG VIAL PERIprocedural Use ONLY ONE (14:57)
[2016-07-08] MEDS: D5-NS + KCL 20 MEQ INJ 1,000 ML IV SCH ×2 (15:00→20:47)
[2016-07-08] MEDS: MORPHINE SULFATE 30 MG/30 ML PCA IV SCH (15:02)
[2016-07-08 15:16] LABS: AUTOMATED NEUTROPHIL # 13.4 TH/MM3 (1.8-7.7); BASOPHIL % 0.1 % (0.0-2.0); HEMATOCRIT 42.4 % (39.0-51.0); HEMO FLAGS DIFF FINAL; LYMPH % 3.1 % (9.0-44.0); LYMPHOCYTE # 0.4 TH/MM3 (1.0-4.8); MEAN CELL VOLUME 84.8 FL (80.0-100.0); MEAN CORPUSCULAR HEMOGLOBIN 29.7 PG (27.0-34.0); MONO % 2.4 % (0.0-8.0); NEUT % 94.4 % (16.0-70.0); PLATELET COUNT 247 TH/MM3 (150-450); WHITE BLOOD COUNT 14.1 TH/MM3 (4.0-11.0)
[2016-07-08 15:32] LABS: BICARBONATE 27.3 MEQ/L (21.0-32.0); POTASSIUM 3.6 MEQ/L (3.5-5.1)
[2016-07-08] MEDS: KETOROLAC TROMETHAMINE 30 MG/ML (IVP) VIAL IVP PRN (16:14)
[2016-07-08] MEDS: metroNIDAZOLE 500 MG INJ 100 ML IV SCH (16:15)
[2016-07-08] MEDS: SODIUM CHLORIDE 0.9% FLUSH 5 ML FLUSH IVF SCH (21:00)
[2016-07-08] MEDS: ACETAMINOPHEN/HYDROcodone 325 MG/5 MG TAB PO PRN (21:10)
[2016-07-08] MEDS: PCA - TOTAL MG MORPHINE DELIVERED PER SHIFT SCH (21:48)
[2016-07-09] VITALS (27 sets, daily range): BP systolic 116–138; BP diastolic 71–81; PULSE 65–101; RESP 18–20; TEMP 98.1–98.9; O2SAT 92–98
[2016-07-09] MEDS: metroNIDAZOLE 500 MG INJ 100 ML IV SCH ×3 (00:07→16:53)
[2016-07-09] MEDS: KETOROLAC TROMETHAMINE 30 MG/ML (IVP) VIAL IVP PRN ×2 (01:52→21:01)
[2016-07-09] MEDS: D5-NS + KCL 20 MEQ INJ 1,000 ML IV SCH ×3 (01:55→16:52)
[2016-07-09] MEDS: ACETAMINOPHEN/HYDROcodone 325 MG/5 MG TAB PO PRN ×2 (03:38→21:12)
[2016-07-09] MEDS: PCA - TOTAL MG MORPHINE DELIVERED PER SHIFT SCH ×3 (05:16→21:06)
[2016-07-09 06:55] LABS: AUTOMATED NEUTROPHIL # 6.3 TH/MM3 (1.8-7.7); BASOPHIL % 0.1 % (0.0-2.0); EOSINOPHIL % 0.1 % (0.0-4.0); HEMATOCRIT 37.4 % (39.0-51.0); HEMO FLAGS DIFF FINAL; LYMPHOCYTE # 1.8 TH/MM3 (1.0-4.8); MEAN CELL VOLUME 85.6 FL (80.0-100.0); MEAN CORPUSCULAR HGB CONC 35.1 % (32.0-36.0); MONO % 12.5 % (0.0-8.0); NEUT % 68.3 % (16.0-70.0); PLATELET COUNT 227 TH/MM3 (150-450); RED BLOOD COUNT 4.37 MIL/MM3 (4.50-5.90); RED CELL DISTRIBUTION WIDTH 13.4 % (11.6-17.2); WHITE BLOOD COUNT 9.3 TH/MM3 (4.0-11.0)
[2016-07-09 07:22] LABS: BICARBONATE 27.9 MEQ/L (21.0-32.0); POTASSIUM 4.2 MEQ/L (3.5-5.1)
[2016-07-09] MEDS: PANTOPRAZOLE SODIUM 40 MG VIAL IVP SCH (08:29)
[2016-07-09] MEDS: SODIUM CHLORIDE 0.9% FLUSH 5 ML FLUSH IVF SCH ×2 (08:29→21:00)
[2016-07-09] MEDS: MORPHINE SULFATE 30 MG/30 ML PCA IV SCH ×2 (10:46→21:25)
[2016-07-09] MEDS: HEPARIN SODIUM - SQ 10,000 UNITS/ML VIAL SQ SCH (13:37)
[2016-07-09] MEDS: ONDANSETRON HCL 4 MG/2 ML VIAL IV PRN ×2 (16:53→21:11)
--- NOTE | 2016-07-09 17:40 | MP ---
cc: JOB CACERES MD, CARMEN A. M.D. DATE OF SURGERY 07/08/16 PREOPERATIVE DIAGNOSIS Diverticulitis POSTOPERATIVE DIAGNOSIS Diverticulitis PROCEDURE 1. Robotic/laparoscopic lysis of adhesion 2. Robotic low anterior resection 3. Robotic small bowel resection. SURGEON Donnie Caceres MD ACCOUNTING ADMINISTRATOR Roland ANESTHESIA General per ET tube ESTIMATED BLOOD LOSS 100 mL OPERATIVE INDICATIONS The patient is a 46-year-old male with a history of a severe diverticulitis with microperforation. OPERATIVE FINDINGS The sigmoid colon was adherent to the left pelvic sidewall as well as the anterior abdominal wall and was quite inflamed and thickened. In addition, a loop of mid ileum was adherent and fistulized down into this area as well. The remainder of the bowel appeared healthy. The liver was not able to be visualized. PROCEDURE IN DETAIL The patient was brought to the operating room and placed in the supine position. After induction of general anesthesia, the patient was placed in [place] stirrups and all bony prominences were padded. The skin of the anterior abdominal wall was then prepped and draped in the usual sterile fashion. Dr. Adkins then came in and performed cystoscopy with placement of bilateral ureteral catheters. Please see his operative note for details. A site was then chosen for the camera port being located just to the right and above the umbilicus. A 10-12 port was placed at this location, under direct vision using a laparoscope. CO2 insufflation was then undertaken and a brief abdominal survey was performed. The previously mentioned adhesions were noted, but there was nothing noted that would preclude the robotic approach. The remainder of the ports were placed as follows: The #1 port was placed just inside the right anterior superior iliac spine. The assist port, which is a 5 port, was placed just under the right costal margin in the right midclavicular line. The #3, an 8 Da Ananya port, was placed on a line with the umbilicus in the left anterior axillary line and, in light of the fact that we suspected that we might have to take the splenic flexure, the #2, Da Ananya 8 port, was placed inn the left midclavicular line three fingerbreadths above the umbilicus. The patient was hydroplaned with the head down and to the right and the bowel was brought up and out of the pelvis. At that point, it was noted that he did have adhesions with a piece of small bowel up against the phlegmon and, after evaluating this, I felt that this would best be removed using the robot. The bowel was pulled out of the pelvis and to the right as much as possible and the robot was docked. The small bowel was slowly and gradually teased off of the phlegmon using electrocautery and retracted up and to the right. At note was made to evaluate that piece of bowel once we had the peritoneum opened. The sigmoid colon was retracted down and to the left and the peritoneum was scored on the right. A window was made posterior to the vessels and dissection was continued in this plane. It was noted to be quite adherent, more than usual, but we were able to dissect all the way over to the left pelvic sidewall. Due to quite a bit of fat in the peritoneal cavity, it was hard to be sure where the ureter was. The attachments of the sigmoid colon to the left pelvic sidewall were then dissected free using electrocautery, and dissection was continued in this plane until the left ureter was clearly identified and swept away from the specimen. Dissection continued until we met our previous dissection plane. The superior hemorrhoidal vessels were then dissected free circumferentially and a white load of the [place] [employer] attendant was placed across the superior hemorrhoidal vessels. This was closed, held for 30 seconds , fired, and removed. The vascular pedicle was examined with no sign of any significant bleeding noted. At this point, dissection was continued cephalad, freeing the descending colon from the posterior peritoneum and laterally freeing it from the lateral sidewall, as well as from the omentum which was wrapped up and around the bowel. Dissection continued up to the level of the splenic flexure but not around it. Attention was then turned posteriorly in the pelvis. The rectosigmoid was gradually dissected free posteriorly down to level of the mid rectum. Dissection continued up and around the right side and then gently and gradually the phlegmonatous mass that was adherent to left pelvic sidewall was dissected free until we had free mobility of the entirety of the descending colon, sigmoid colon and the rectum. At this point, a sponge stick was placed in the rectum and a site was chosen for division of the rectum. The mesentery at this level was divided using the harmonic scalpel, and a blue load of the [place] endostapler was placed across the bowel at this level. A second load was necessary to transect the specimen. During this time, there was some small leakage of stool into the peritoneal cavity, but this was quickly suctioned up. The 33 EEA stapler was then advanced through the anus and advanced to the rectal stump, but I could not get it to advance the last 4-5 cm so I elected to dissect back an additional distance. The mesentery was cleared back an additional 5-6 cm using a combination of electrocautery and the harmonic scalpel. The stapler was again attempted to be advanced but again it was difficult. With this, I elected to go with the 29 EEA stapler. This was brought onto the field, placed into the anus and advanced to the proposed resection margin without difficulty. The reload of the [employer] [employer] attendant was then placed across the bowel at this level, fired and removed. It was again confirmed that the stapler came up nicely without tension. At this point, we reevaluated and felt that we definitely still could bring the good bowel above the sigmoid down to the level of the rectum. All dissection beds were examined and hemostasis was obtained with electrocautery. The robot was then undocked. An 8-10 cm transverse incision was made in the suprapubic area and, using electrocautery, dissection was carried down to the fascia of the anterior abdominal wall. The anterior fascia was split and the medial fibers of rectus abdominis muscle were split. The posterior fascia of peritoneum was then split the length of the skin incision. A wound protector was then placed and both the extra segments that we had taken out were removed. The proximal stapled end of the bowel was then grasped and pulled up and out through the suprapubic incision. A site was then chosen for proximal division of the bowel, above the level of the inflammatory changes at the mesentery. The mesentery at this level was serially divided and ligated using 0 Vicryl ties, and a pursestring stapling device was placed across the bowel. The distal bowel was then amputated. The anvil from the 29 EEA stapler was placed into the cut end of the bowel and the previously placed pursestring suture was then secured. This was then returned into the peritoneal cavity for later anastomosis. The small bowel was then brought out and evaluated and the area in question where it had been stuck to the phlegmon did appear to have a fairly significant fistula and inflammatory changes. With this, a window was made in the mesentery proximally and distally and a blue load of the linear gastrointestinal stapler was placed across the bowel proximally and distally. This was fired and removed. The intervening mesentery was then serially divided and ligated using 0 Vicryl ties. There was one small area of bleeding that needed to be controlled in [id number] fashion using 3-0 Vicryl. The antimesenteric corners of the staple lines were then removed sharply. One limb of the gastrointestinal stapler was placed down each limb of the bowel. This was closed along the antimesenteric border, fired, and removed, thus creating an enteroenterotomy. The resulting enterotomy was closed transversely using a [place] 60 stapling device. The anastomosis was palpated and found to be widely patent. A simple stay suture was placed at the end of the anastomosis using 3-0 Vicryl. The mesenteric defect was closed in a running fashion using 3-0 Vicryl. The bowel was then placed back into the peritoneal cavity. One member of the operating room team then performed the perineal portion of the procedure. After gentle digital dilatation of the anus, the stapler was advanced to the rectal stump and the spike was advanced just posterior to the staple line. A small dog ear was then gently stitched and brought in to lay around the base of the staple shaft. The anvil was then into the spike and, being careful that the bowel was not twisted, the stapler was then closed. This was held for 30 seconds, fired and removed thus creating and enteroenterotomy. The enterotomy lay in a nice orientation without tension and both anastomotic rings were noted to be complete. A small amount of warm normal saline was placed into the pelvis and gentle digital pressure was held proximally as the air was insufflated to the extent possible. Once gentle tension was noted on the anastomosis with no sign of any leaks noted, the air was desufflated to the extent possible and the saline was suctioned out of the pelvis. All dissection beds were again examined and again there was no sign of any significant bleeding. The posterior fascia at the suprapubic incision was closed in a running fashion using #1 PDS, and the anterior fascia at the suprapubic incision was closed in a running fashion using #1 PDS. An opsite was placed across the suprapubic incision and CO2 insufflation was resumed. The anastomosis was checked and again lay in a nice orientation without tension. The fascia at the 10-12 trocar sites in the right lower quadrant and the periumbilical area was then closed using the crossbow device and 0 Vicryl suture. The wounds were copiously irrigated with warm normal saline. The suprapubic incision was closed in a running subcuticular fashion using 0 Vicryl and the skin at the trocar sites were closed in interrupted subcuticular fashion using 3-0 Vicryl. Steri-Strips and sterile dressings were then applied. The right ureteral stent was removed. All sponge, needle and sponge counts were correct and the patient was returned to the post anesthesia care unit in stable condition. MD BENEDICT Jett/ /2:11 PM /5:03 PM TOAN
[2016-07-10] VITALS (17 sets, daily range): BP systolic 125–161; BP diastolic 74–94; PULSE 68–87; RESP 17–20; TEMP 98.3–98.7; O2SAT 94–99
[2016-07-10] MEDS: HEPARIN SODIUM - SQ 10,000 UNITS/ML VIAL SQ SCH ×2 (00:35→14:32)
[2016-07-10] MEDS: D5-NS + KCL 20 MEQ INJ 1,000 ML IV SCH ×3 (00:35→15:53)
[2016-07-10] MEDS: metroNIDAZOLE 500 MG INJ 100 ML IV SCH ×3 (00:40→17:17)
[2016-07-10] MEDS: ACETAMINOPHEN/HYDROcodone 325 MG/5 MG TAB PO PRN ×3 (03:23→18:40)
[2016-07-10] MEDS: PCA - TOTAL MG MORPHINE DELIVERED PER SHIFT SCH (05:20)
[2016-07-10] MEDS: KETOROLAC TROMETHAMINE 30 MG/ML (IVP) VIAL IVP PRN ×3 (07:34→20:24)
[2016-07-10] MEDS: SODIUM CHLORIDE 0.9% FLUSH 5 ML FLUSH IVF SCH ×2 (08:46→20:25)
[2016-07-10] MEDS: PANTOPRAZOLE SODIUM 40 MG VIAL IVP SCH (08:46)
[2016-07-10 08:57] LABS: AUTOMATED NEUTROPHIL # 5.2 TH/MM3 (1.8-7.7); BASOPHIL % 0.1 % (0.0-2.0); EOSINOPHIL % 0.5 % (0.0-4.0); HEMATOCRIT 35.8 % (39.0-51.0); HEMO FLAGS DIFF FINAL; LYMPH % 16.6 % (9.0-44.0); LYMPHOCYTE # 1.2 TH/MM3 (1.0-4.8); MEAN CELL VOLUME 85.6 FL (80.0-100.0); MEAN CORPUSCULAR HEMOGLOBIN 29.2 PG (27.0-34.0); MEAN CORPUSCULAR HGB CONC 34.1 % (32.0-36.0); MONO % 9.8 % (0.0-8.0); PLATELET COUNT 171 TH/MM3 (150-450); RED BLOOD COUNT 4.18 MIL/MM3 (4.50-5.90); RED CELL DISTRIBUTION WIDTH 13.1 % (11.6-17.2); WHITE BLOOD COUNT 7.2 TH/MM3 (4.0-11.0)
[2016-07-10 09:33] LABS: BICARBONATE 28.2 MEQ/L (21.0-32.0)
--- NOTE | 2016-07-10 10:41 | HHI.PR ---
Subjective Remarks C/R Surg POD #2 afebrile, VSS UO good -stent dc'd +BM Objective - Vital Signs Date Time Temp Pulse Resp B/P Pulse Ox O2 Delivery O2 Flow Rate FiO2 07/10/16 10:00 80 07/10/16 08:00 96 Room Air 07/10/16 07:15 98.5 18 125/74 07/10/16 04:00 2.00 07/09/16 07:40 21 Result Diagram: 07/10/16 0715 07/10/16 0845 Objective Remarks PE alert Abd - soft, wounds clean, min tympany A/P Assessment and Plan Imp: adv diet dc ivf dc IT INFRASTRUCTURE CONSULTANT Jose Antonio Wolfe MD Jul 10, 2016 10:41
[2016-07-10] MEDS: ONDANSETRON HCL 4 MG/2 ML VIAL IV PRN (18:40)
[2016-07-11] VITALS (9 sets, daily range): BP systolic 141–156; BP diastolic 81–94; PULSE 70–84; RESP 16–18; TEMP 98.1–98.4; O2SAT 93–98
[2016-07-11] MEDS: HEPARIN SODIUM - SQ 10,000 UNITS/ML VIAL SQ SCH ×2 (00:49→13:01)
[2016-07-11] MEDS: ACETAMINOPHEN/HYDROcodone 325 MG/5 MG TAB PO PRN ×4 (00:50→20:43)
[2016-07-11 04:53] LABS: AUTOMATED NEUTROPHIL # 2.9 TH/MM3 (1.8-7.7); BASOPHIL % 0.2 % (0.0-2.0); EOSINOPHIL # 0.1 TH/MM3 (0-0.4); EOSINOPHIL % 2.8 % (0.0-4.0); HEMO FLAGS DIFF FINAL; LYMPH % 29.8 % (9.0-44.0); LYMPHOCYTE # 1.6 TH/MM3 (1.0-4.8); MEAN CELL VOLUME 84.1 FL (80.0-100.0); MEAN CORPUSCULAR HEMOGLOBIN 29.9 PG (27.0-34.0); MEAN CORPUSCULAR HGB CONC 35.5 % (32.0-36.0); MONO % 11.5 % (0.0-8.0); NEUT % 55.7 % (16.0-70.0); PLATELET COUNT 183 TH/MM3 (150-450); RED BLOOD COUNT 4.15 MIL/MM3 (4.50-5.90); RED CELL DISTRIBUTION WIDTH 12.7 % (11.6-17.2); WHITE BLOOD COUNT 5.2 TH/MM3 (4.0-11.0)
[2016-07-11 05:18] LABS: BICARBONATE 29.6 MEQ/L (21.0-32.0)
[2016-07-11] MEDS: D5-NS + KCL 20 MEQ INJ 1,000 ML IV SCH (07:09)
[2016-07-11] MEDS: PANTOPRAZOLE SODIUM 40 MG VIAL IVP SCH (08:04)
[2016-07-11] MEDS: SODIUM CHLORIDE 0.9% FLUSH 5 ML FLUSH IVF SCH ×2 (08:04→21:00)
[2016-07-11] MEDS: ONDANSETRON HCL 4 MG/2 ML VIAL IV PRN ×2 (08:05→20:41)
[2016-07-11] MEDS: KETOROLAC TROMETHAMINE 30 MG/ML (IVP) VIAL IVP PRN (13:06)
[2016-07-11] MEDS ORDERED: HYDR-3516 PO (18:38)
--- NOTE | 2016-07-11 18:38 | HHI.PR ---
Subjective Remarks POD#3 robotic sigmoid resection with SBR reports pain Objective Vital Signs Date Time Temp Pulse Resp B/P Pulse Ox O2 Delivery O2 Flow Rate FiO2 07/11/16 15:55 98.3 70 18 150/89 98 07/11/16 15:05 18 07/11/16 14:07 16 07/11/16 11:15 98.3 80 18 95 07/11/16 10:59 96 21 07/11/16 08:05 95 Room Air 07/11/16 07:35 98.4 84 18 141/83 95 07/11/16 04:00 98.3 77 18 143/81 93 07/11/16 00:00 98.1 83 18 156/94 94 07/11/16 00:00 Room Air 07/10/16 20:29 95 21 07/10/16 20:00 98.4 84 20 151/94 95 07/10/16 20:00 Room Air I/O 07/10/16 07/10/16 07/10/16 07/11/16 07/11/16 07/11/16 07:00 15:00 23:00 07:00 15:00 23:00 Intake Total 2950 ml 798 ml 610 ml 960 ml Output Total 1200 ml 1400 ml 1200 ml 800 ml Balance 1750 ml -602 ml -590 ml 160 ml Intake Oral 950 ml 720 ml 600 ml 960 ml IV Total 2000 ml 78 ml 10 ml Output Urine Total 1200 ml 1400 ml 1200 ml 800 ml # Bowel Movements 2 3 2 Result Diagram: 07/11/16 0426 07/11/16 0417 Objective Remarks Abdomen soft, nondistended, tender Wounds clean Moving well Assessment and Plan Assessment and Plan Doing well Home in am Yoly Caceres MD Jul 11, 2016 18:38
[2016-07-12] MEDS: D5-NS + KCL 20 MEQ INJ 1,000 ML IV SCH (01:13)
[2016-07-12] MEDS: HEPARIN SODIUM - SQ 10,000 UNITS/ML VIAL SQ SCH (03:13)
[2016-07-12] MEDS: ACETAMINOPHEN/HYDROcodone 325 MG/5 MG TAB PO PRN ×2 (03:13→09:06)
[2016-07-12 04:20] VITALS: BP 141/89; PULSE 81; RESP 16; TEMP 98.6; O2SAT 96
[2016-07-12 08:00] VITALS: BP 139/88; PULSE 79; RESP 18; TEMP 98.3; O2SAT 94
[2016-07-12] MEDS: SODIUM CHLORIDE 0.9% FLUSH 5 ML FLUSH IVF SCH (09:00)
[2016-07-12] MEDS: PANTOPRAZOLE SODIUM 40 MG VIAL IVP SCH (09:07)
[2016-07-12 10:17] VITALS: O2SAT 96
[2016-07-12 11:00] VITALS: BP 122/81; PULSE 82; RESP 18; TEMP 98.1; O2SAT 96
--- NOTE | 2016-08-17 13:25 | MD ---
cc: JOB GARZA M.D. ADMISSION DATE: 07/08/2016 DISCHARGE DATE: 07/12/2016 ADMISSION DIAGNOSIS Diverticulitis DISCHARGE DIAGNOSIS Diverticulitis PROCEDURE 1. Cystoscopy with placement of bilateral ureteral catheters. 2. Robotic/laparoscopic lysis of adhesions. 3. Robotic low anterior resection 4. Robotic small bowel resection. HOSPITAL COURSE The patient is a 46-year-old male with a history of severe diverticulitis with microperforation. He was admitted to the hospital on July 08, 2016 after an outpatient bowel prep. He was taken to the operating where he underwent the above-named procedures. Intraoperative findings included a phlegmonatous sigmoid colon with a loop of mid ileum that was adherent. Postoperatively, the patient did well with rapid return of bowel and bladder function. He was discharged to home on July 12, 2016 with instructions to follow up with myself in the office. Final pathology was consistent with diverticulitis. MD BENEDICT Jett/UMANG /9:30 AM /1:12 PM MTDMalika
== END 2016-07-12 13:04 | disposition home or self-care (01) | DRG 330 ==
LOC: HSDI 07-08 06:14 → HCIS 07-08 15:38
PROVIDERS: ADMIT Colon & Rectal Surgery; ATTEND Colon & Rectal Surgery
PROC: 0DNE4ZZ Release Large Intestine, Percutaneous Endoscopic Approach (ICD-10-PCS; 2016-07-08)
PROC: 0DN84ZZ Release Small Intestine, Percutaneous Endoscopic Approach (ICD-10-PCS; 2016-07-08)
PROC: 8E0W4CZ Robotic Assisted Procedure of Trunk Region, Percutaneous Endoscopic Approach (ICD-10-PCS; 2016-07-08)
PROC: 0T9880Z Drainage of Bilateral Ureters with Drainage Device, Via Natural or Artificial Opening Endoscopic (ICD-10-PCS; 2016-07-08)
PROC: 0DBN0ZZ Excision of Sigmoid Colon, Open Approach (ICD-10-PCS; principal; 2016-07-08 08:29)
PROC: 0DBB0ZZ Excision of Ileum, Open Approach (ICD-10-PCS; 2016-07-08 08:29)
DX: K57.20 Diverticulitis of large intestine with perforation and abscess without bleeding (principal); K63.2 Fistula of intestine; K21.9 Gastro-esophageal reflux disease without esophagitis; K66.0 Peritoneal adhesions (postprocedural) (postinfection); Z88.1 Allergy status to other antibiotic agents
CPT/HCPCS: 80048; 85025; 86850; 86900; 86901; 88305; 88307; 94150; C1769; C9113; J0131; J0690; J1170; J1644; J1885; J2250; J2270; J2405; J2710; J3010; J3480; J7120

== ENCOUNTER → 2016-07-01 | Outpatient (CLI) | payer OTHER ==
[~2016-07-01] MED LIST changes: +BACT800T5 PO; +CEPH-460 PO; +CLIN150 PO; +NEXI20CA PO; +PANT40TA3 PO
[2016-07-01 10:15] LABS: BASOPHIL % 0.2 % (0.0-2.0); EOSINOPHIL # 0.1 TH/MM3 (0-0.4); EOSINOPHIL % 1.6 % (0.0-4.0); HEMATOCRIT 45.8 % (39.0-51.0); HEMO FLAGS DIFF FINAL; LYMPH % 36.8 % (9.0-44.0); LYMPHOCYTE # 2.1 TH/MM3 (1.0-4.8); MEAN CELL VOLUME 84.6 FL (80.0-100.0); MEAN CORPUSCULAR HEMOGLOBIN 28.9 PG (27.0-34.0); MEAN CORPUSCULAR HGB CONC 34.2 % (32.0-36.0); MONO % 8.5 % (0.0-8.0); NEUT % 52.9 % (16.0-70.0); PLATELET COUNT 241 TH/MM3 (150-450); RED BLOOD COUNT 5.41 MIL/MM3 (4.50-5.90); RED CELL DISTRIBUTION WIDTH 13.1 % (11.6-17.2); WHITE BLOOD COUNT 5.7 TH/MM3 (4.0-11.0)
[2016-07-01 10:18] LABS: INTERNATIONAL NORMALIZED RATIO 1.1 RATIO; PROTHROMBIN TIME - PATIENT 11.7 SEC (9.8-11.6)
[2016-07-01 10:19] LABS: BLOOD, URINE NEG (NEG); COMMENT (UR) CULT NOT INDICATED; CULTURE IF INDICATED CULT NOT INDICATED; GLUCOSE,URINE NEG (NEG); KETONE, URINE NEG (NEG); NITRITE,URINE NEG (NEG); PH, URINE 5.5 (5.0-8.5); URINE COLOR YELLOW (YELLW/STRAW)
[2016-07-01 10:34] LABS: ALKALINE PHOSPHATASE 93 U/L (45-117); ALT (GPT) 28 U/L (12-78); ANION GAP 5 MEQ/L (5-15); AST (GOT) 19 U/L (15-37); BICARBONATE 30.7 MEQ/L (21.0-32.0); BLOOD UREA NITROGEN 16 MG/DL (7-18); CHLORIDE 103 MEQ/L (98-107); GLOMERULAR FILTRATION RATE 74 ML/MIN (>89); GLUCOSE,FASTING 85 MG/DL (74-99); POTASSIUM 4.3 MEQ/L (3.5-5.1); SODIUM (NA) 139 MEQ/L (136-145); TOTAL BILIRUBIN ADULT 0.4 MG/DL (0.2-1.0)
== END ==
LOC: CPRE 09:25
PROVIDERS: ATTEND Colon & Rectal Surgery
DX: Z01.812 Encounter for preprocedural laboratory examination (principal); K57.32 Diverticulitis of large intestine without perforation or abscess without bleeding
CPT/HCPCS: 36415; 80053; 81001; 85025; 85610; 85730

== ENCOUNTER 2016-08-08 19:54 | Emergency (ER) | payer OTHER ==
[~2016-08-08] VITALS: Ht 188 cm; Wt 98.2 kg
[~2016-08-08 19:54] MED LIST changes: -BACT800T5 PO; -CEPH-460 PO; -CLIN150 PO; -NEXI20CA PO; -POLY17S PO; -ZOFR4TAB3 SL
[2016-08-08 19:59] VITALS: BP 108/78; PULSE 125; RESP 18; TEMP 99.4; O2SAT 98
[2016-08-08] MEDS ORDERED: NEXI20CA PO (20:57)
[2016-08-08] MEDS ORDERED: SODIUM CHLOR 0.9% 1000 ML INJ 1,000 ML IV SCH (21:02)
--- NOTE | 2016-08-08 21:05 | PD ---
HPI Chief Complaint: Abdominal Pain Time Seen by Provider: 21:02 Travel History International Travel<30 days: No Contact w/Intl Traveler<30days: No Traveled to known affect area: No History of Present Illness HPI Patient is a 46-year-old male presents emergency department for evaluation of abdominal pain periumbilical for the past 3 days. Patient has significant history of small bowel resection and bilateral ureteral stents placed approximately a month ago by Dr. Yoly Caceres. Patient states the pain is gnawing and feeling like "hunger pains". He did state he had one episode of diarrhea. States he had a temperature of 101 Fahrenheit prior to arrival. He denies any nausea or vomiting. He thinks it's more his gastritis which she has a history of in the past as Dr. Kay scoped him in the past. PFSH Past Medical History Arthritis: No Anxiety: Yes Depression: No Cancer: No Cardiovascular Problems: No Chemotherapy: No Diminished Hearing: No Diverticulitis: Yes Endocrine: No Gastrointestinal Disorders: Yes GERD: Yes Genitourinary: No Hepatitis: No Hiatal Hernia: No Immune Disorder: No Musculoskeletal: Yes (LUMBAR DDD) Neurologic: No Psychiatric: Yes (ANXIETY) Reproductive: No Respiratory: No Radiation Therapy: No Ulcer: No Past Surgical History AICD: No Arteriovenous Shunt: No Body Medical Devices: NONE Insulin Pump: No Joint Replacement: No Pacemaker: No Other Surgery: Yes (lower resection) Social History Alcohol Use: Yes ("HAVEN'T DRANK SINCE MARCH, OTHERWISE A COUPLE EVERY 2 WEEKS":08/08/16) Tobacco Use: Yes (1 PPD) Substance Use: No Allergies-Medications (Allergen,Severity, Reaction): Coded Allergies: Ciprofloxacin (Verified Allergy, Severe, RASH, 08/08/16) Reported Meds & Prescriptions Reported Meds & Active Scripts Active Keflex (Cephalexin) 500 Mg Cap 500 Mg PO Q6H 7 Days Hydrocodone-Acetaminophen 5-325 mg Tab 1 Tab PO Q6H PRN Reported Nexium (Esomeprazole DR) 20 Mg Capdr 20 Mg PO DAILY Pantoprazole (Pantoprazole Sodium) 40 Mg Tab 40 Mg PO DAILY Review of Systems Except as stated in HPI: all other systems reviewed are Neg Physical Exam Narrative GENERAL: Well-developed well-nourished no apparent distress SKIN: Skin overlying the abdomen is clean dry and intact, several small surgical wounds which are healing well. No cellulitis is viewed. No bruising is viewed. HEAD: Atraumatic. Normocephalic. EYES: Pupils equal and round. No scleral icterus. No injection or drainage. ENT: No nasal bleeding or discharge. Mucous membranes pink and moist. NECK: Trachea midline. No JVD. CARDIOVASCULAR: Regular rate and rhythm. No murmur appreciated. RESPIRATORY: No accessory muscle use. Clear to auscultation. Breath sounds equal bilaterally. GASTROINTESTINAL: Abdomen soft, minimally tender throughout all 4 quadrants, nondistended. Hepatic and splenic margins not palpable. No rebound no percussive tenderness. Heel tap test negative. MUSCULOSKELETAL: No obvious deformities. No clubbing. No cyanosis. No edema. NEUROLOGICAL: Awake and alert. No obvious cranial nerve deficits. Motor grossly within normal limits. Normal speech. PSYCHIATRIC: Appropriate mood and affect; insight and judgment normal. Data Data Last Documented VS Vital Signs Date Time Temp Pulse Resp B/P Pulse Ox O2 Delivery O2 Flow Rate FiO2 08/08/16 22:25 99.8 92 18 102/56 97 Room Air Orders Complete Blood Count With Diff (08/08/16 21:02) Comprehensive Metabolic Panel (08/08/16 21:02) Lipase (08/08/16 21:02) Urinalysis - C+S If Indicated (08/08/16 21:) Ct Abd/Pel W Iv Contrast(Rout) (08/08/16 21:02) Iv Access Insert/Monitor (08/08/16 21:02) Ecg Monitoring (08/08/16 21:02) Oximetry (08/08/16 21:02) Sodium Chlor 0.9% 1000 Ml Inj (Ns 1000 M (08/08/16 21:02) Sodium Chloride 0.9% Flush (Ns Flush) (08/08/16 21:15) Electrocardiogram (08/08/16 21:02) Al-Mag Hy-Si 40-40-4 Mg/Ml Liq (Mag-Al P (08/08/16 21:15) Lidocaine 2% Viscous (Xylocaine 2% Visco (08/08/16 21:15) Iohexol 350 Inj (Omnipaque 350 Inj) (08/08/16 22:59) Labs Laboratory Tests Test 08/08/16 08/08/16 21:10 21:13 White Blood Count 6.9 TH/MM3 Red Blood Count 5.07 MIL/MM3 Hemoglobin 15.1 GM/DL Hematocrit 43.8 % Mean Corpuscular Volume 86.3 FL Mean Corpuscular Hemoglobin 29.8 PG Mean Corpuscular Hemoglobin 34.5 % Concent Red Cell Distribution Width 12.9 % Platelet Count 220 TH/MM3 Mean Platelet Volume 7.2 FL Neutrophils (%) (Auto) 80.9 % Lymphocytes (%) (Auto) 11.0 % Monocytes (%) (Auto) 6.7 % Eosinophils (%) (Auto) 0.2 % Basophils (%) (Auto) 1.2 % Neutrophils # (Auto) 5.5 TH/MM3 Lymphocytes # (Auto) 0.8 TH/MM3 Monocytes # (Auto) 0.5 TH/MM3 Eosinophils # (Auto) 0.0 TH/MM3 Basophils # (Auto) 0.1 TH/MM3 CBC Comment DIFF FINAL Differential Comment Sodium Level 137 MEQ/L Potassium Level 3.7 MEQ/L Chloride Level 102 MEQ/L Carbon Dioxide Level 26.8 MEQ/L Anion Gap 8 MEQ/L Blood Urea Nitrogen 14 MG/DL Creatinine 1.10 MG/DL Estimat Glomerular Filtration 72 ML/MIN Rate Random Glucose 108 MG/DL Calcium Level 8.7 MG/DL Total Bilirubin 0.6 MG/DL Aspartate Amino Transf 20 U/L (AST/SGOT) Alanine Aminotransferase 35 U/L (ALT/SGPT) Alkaline Phosphatase 94 U/L Total Protein 7.1 GM/DL Albumin 3.4 GM/DL Lipase 93 U/L Urine Color JAYLIN Urine Turbidity HAZY Urine pH 5.5 Urine Specific [place] 1.033 Urine Protein 100 mg/dL Urine Glucose (UA) NEG mg/dL Urine Ketones TRACE mg/dL Urine Occult Blood NEG Urine Nitrite NEG Urine Bilirubin NEG Urine Leukocyte Esterase NEG Urine RBC 0-3 /hpf Urine WBC INNUM /hpf Urine Squamous Epithelial 0-5 /hpf Cells Urine Hyaline Casts 3-5 /lpf Urine Granular Casts 0-2 /lpf Urine Fine Granular Casts 0-2 /lpf Urine Coarse Granular Casts /lpf Urine White Blood Cell Casts 0-2 /lpf Urine Mucus MANY /lpf Microscopic Urinalysis Comment CULT NOT INDICATED MDM Medical Decision Making Medical Screen Exam Complete: Yes Emergency Medical Condition: Yes Interpretation(s) EKG shows sinus tachycardia rate of 101, normal axis normal R-wave progression. Incomplete right bundle-branch block as indicated by an RSR prime pattern in V1 and V2. Q waves in lead 3. Nonspecific anterior T-wave inversions. Comparison of 04/04/2016 shows no change. This is an borderline EKG. Differential Diagnosis Bowel perforation seems unlikely, gastritis, gastroenteritis, GERD, as seems unlikely, acute abdomen seems unlikely. Narrative Course Patient was roomed in the emergency department, he was offered pain medicine and declined I suggested he try a GI cocktail and he is agreeable to, . Patient has had significant abdominal surgery in the recent past including ureteral stents were placed and then removed perioperatively. He has not followed up with urologist. His labs are fairly reassuring however there is white blood cell clumps and his UA. Last 24 hours Impressions Abdomen/Pelvis CT 08/08/162101 Signed Impressions: Service Date/Time: Monday, August 08, 2016 22:06 - CONCLUSION: 1. Normal appendix. 2. Induration of the soft tissues of the lower abdominal wall could be contusion or cellulitis. 3. Post surgical changes with anastomotic sutures in the rectosigmoid colon. Papa Willoughby MD Discuss results with the patient no definitive cause of abdominal pain could be established. He was given a GI cocktail and had significant response of his pain to this. On my reassessment he is resting soundly in no obvious distress. Discussed with patient that his symptoms certainly could be from gastritis but I recommend that he follow-up with his surgeon as well as his GI doctor as soon as possible. Discussed with him symptomatic management of GERD at home and returned ED criteria. Overall he is significant improved in the emergency department. He is stable for discharge at this time. Diagnosis Primary Impression: Abdominal pain Qualified Code: R10.9 - Abdominal pain, unspecified location Additional Impression: Pyuria Referrals: Pineda Adkins MD, Kathleen MD Med/Other Pt SpecificInfo: Prescription(s) given Scripts Cephalexin (Keflex)500 Mg Fwa511 Mg PO Q6H 7 Days Ref 0 Prov:Neri Ricci MD 08/08/16 Disposition: 01 DISCHARGE HOME Condition: Stable Neri Ricci MD August 08, 2016 21:05
[2016-08-08] MEDS ORDERED: SODIUM CHLORIDE 0.9% FLUSH 10 ML FLUSH IV FLUSH PRN (21:15)
[2016-08-08] MEDS ORDERED: ALUMINUM/MAGNESIUM/SIMETH 30 ML CUP PO ONE (21:15)
[2016-08-08] MEDS ORDERED: LIDOCAINE VISCOUS 2% SOLN 15 ML UDC PO ONE (21:15)
[2016-08-08 21:21] VITALS: PULSE 112; O2SAT 97
[2016-08-08 21:21] LABS: AUTOMATED NEUTROPHIL # 5.5 TH/MM3 (1.8-7.7); BASOPHIL # 0.1 TH/MM3 (0-0.2); BASOPHIL % 1.2 % (0.0-2.0); EOSINOPHIL % 0.2 % (0.0-4.0); HEMATOCRIT 43.8 % (39.0-51.0); HEMO FLAGS DIFF FINAL; LYMPHOCYTE # 0.8 TH/MM3 (1.0-4.8); MEAN CELL VOLUME 86.3 FL (80.0-100.0); MEAN CORPUSCULAR HEMOGLOBIN 29.8 PG (27.0-34.0); MEAN CORPUSCULAR HGB CONC 34.5 % (32.0-36.0); MONO % 6.7 % (0.0-8.0); NEUT % 80.9 % (16.0-70.0); PLATELET COUNT 220 TH/MM3 (150-450); RED BLOOD COUNT 5.07 MIL/MM3 (4.50-5.90); RED CELL DISTRIBUTION WIDTH 12.9 % (11.6-17.2); WHITE BLOOD COUNT 6.9 TH/MM3 (4.0-11.0)
[2016-08-08 21:34] LABS: BLOOD, URINE NEG (NEG); GLUCOSE,URINE NEG (NEG); KETONE, URINE TRACE mg/dL (NEG); NITRITE,URINE NEG (NEG); PH, URINE 5.5 (5.0-8.5)
[2016-08-08 21:34] LABS: CHLORIDE 102 MEQ/L (98-107); POTASSIUM 3.7 MEQ/L (3.5-5.1); SODIUM (NA) 137 MEQ/L (136-145)
[2016-08-08 21:40] LABS: ANION GAP 8 MEQ/L (5-15); BICARBONATE 26.8 MEQ/L (21.0-32.0); BLOOD UREA NITROGEN 14 MG/DL (7-18)
[2016-08-08 21:43] LABS: ALT (GPT) 35 U/L (12-78); AST (GOT) 20 U/L (15-37); GLOMERULAR FILTRATION RATE 72 ML/MIN (>89)
[2016-08-08 21:44] LABS: TOTAL BILIRUBIN ADULT 0.6 MG/DL (0.2-1.0)
[2016-08-08 21:44] LABS: URINE COLOR AMBER (YELLW/STRAW)
[2016-08-08 21:45] LABS: ALKALINE PHOSPHATASE 94 U/L (45-117)
[2016-08-08 21:45] LABS: MUCUS URINE MANY /lpf (OCC)
[2016-08-08 21:46] LABS: GRANULAR CAST, URINE 0-2 /lpf; WHITE BLOOD CELL CAST, URINE 0-2 /lpf
[2016-08-08 21:47] LABS: RBC, URINE 0-3 /hpf (0-3); WBC, URINE INNUM /hpf (0-5)
[2016-08-08 21:48] LABS: SQUAMOUS EPITHELIAL CELL URINE 0-5 /hpf (0-5)
[2016-08-08 21:49] LABS: COMMENT (UR) CULT NOT INDICATED; CULTURE IF INDICATED CULT NOT INDICATED
[2016-08-08 22:25] VITALS: BP 102/56; PULSE 92; RESP 18; TEMP 99.8; O2SAT 97
--- NOTE | 2016-08-08 22:38 | RADHPO ---
EXAM DATE/TIME: 08/08/2016 22:06 [place] COMPARISON: CT ABDOMEN & PELVIS W CONTRAST, April 03, 2016, 21:04. INDICATIONS : Periumbilical and right lower quadrant pain. IV CONTRAST: 100 cc Omnipaque 350 (iohexol) IV ORAL CONTRAST: No oral contrast ingested. RADIATION DOSE: 16.88 CTDIvol (mGy) MEDICAL HISTORY : Diverticulitis. SURGICAL HISTORY : Colon resection. ENCOUNTER: Initial ACUITY: 3 days PAIN SCALE: 6/10 LOCATION: Right lower quadrant TECHNIQUE: Volumetric scanning of the abdomen and pelvis was performed. Using automated exposure control and ad justment of the mA and/or kV according to patient size, radiation dose was kept as low as reasonably achievable to obtain optimal diagnostic quality images. FINDINGS: LOWER LUNGS: The visualized lower lungs are clear. LIVER: Homogeneous density without lesion. There is no dilation of the biliary tree. No calcified gallston es. SPLEEN: Normal size without lesion. PANCREAS: Within normal limits. KIDNEYS: Normal in size and shape. There is no mass, stone or hydronephrosis. ADRENAL GLANDS: Within normal limits. VASCULAR: There is no aortic aneurysm. BOWEL/MESENTERY: The stomach, small bowel, and colon demonstrate no acute abnormality. There is no free intraperitone al air or fluid. Appendix normal. Anastomotic sutures in the rectosigmoid colon. ABDOMINAL WALL: Induration of the soft tissues of the lower abdomen and.. RETROPERITONEUM: There is no lymphadenopathy. BLADDER: No wall thickening or mass. REPRODUCTIVE: Within normal limits. INGUINAL: There is no lymphadenopathy or hernia. MUSCULOSKELETAL: Within normal limits for patient age. CONCLUSION: 1. Normal appendix. 2. Induration of the soft tissues of the lower abdominal wall could be contusion or cellulitis. 3. Post surgical changes with anastomotic sutures in the rectosigmoid colon. Papa Willoughby MD on August 08, 2016 at 22:30 Board Certified Radiologist. This report was verified electronically.
[2016-08-08] MEDS ORDERED: IOHEXOL 350 MG/ML 10 ML VIAL (for RAD DIAG) IV ONE (22:59)
[2016-08-08] MEDS ORDERED: CEPH-460 PO (23:05)
--- NOTE | 2016-08-09 15:12 | EKG ---
Date Performed: 08/08/2016 Time Performed: 21:12:38 PTAGE: 46 years EKG: Sinus tachycardia Incomplete RBBB Poor R wave progression - probable normal variant Anterio r T wave changes are nonspecific Compared to the previous tracing sinus rate has increased Borderline ECG PREVIOUS TRACING : 04/04/2016 10.41 DOCTOR: Ray Martinez Interpretating Date/Time 08/09/2016 15:10:39
== END 2016-08-08 23:20 | disposition home or self-care (01) ==
LOC: PHED 19:54
DX: R10.9 Unspecified abdominal pain (principal); N39.0 Urinary tract infection, site not specified; R19.7 Diarrhea, unspecified; R00.0 Tachycardia, unspecified; I45.10 Unspecified right bundle-branch block; F41.9 Anxiety disorder, unspecified; K21.9 Gastro-esophageal reflux disease without esophagitis; F17.200 Nicotine dependence, unspecified, uncomplicated; Z79.899 Other long term (current) drug therapy
CPT/HCPCS: 74177; 80053; 81001; 83690; 85025; 93005; 96360; 99284; J7030; Q9967

== ENCOUNTER 2017-08-17 14:06 | Inpatient (IN) | payer OTHER ==
[~2017-08-17] VITALS: Ht 188 cm; Wt 97.0 kg
[~2017-08-17 14:06] MED LIST changes: +FLUO20CA12 PO; -FLUO20CA4 PO; -HYDR-3516 PO
[2017-08-17 14:08] VITALS: BP 141/78; PULSE 130; RESP 16; TEMP 102.7; O2SAT 96
[2017-08-17] MEDS ORDERED: SODIUM CHLOR 0.9% 1000 ML INJ 1,000 ML IV ONE ×3 (14:19)
[2017-08-17] MEDS ORDERED: RANI150C PO (14:28)
[2017-08-17] MEDS ORDERED: LACTCAP8 PO (14:29)
[2017-08-17] MEDS ORDERED: ACETAMINOPHEN 325 MG TAB PO ONE (14:30)
--- NOTE | 2017-08-17 14:40 | RADRPT ---
EXAM DATE: 08/17/2017 2:37 PM EDT AGE/SEX: 47 years / Male INDICATIONS: Fever, shortness of breath, headache, and nausea. CLINICAL DATA: This is the patient's initial encounter. Patient reports that signs and symptoms have been present for 2 days and indicates a pain score of 0/10. MEDICAL/SURGICAL HISTORY: None. Colon resection. COMPARISON: No prior [place] exams available for comparison. FINDINGS: PA and lateral views of the chest demonstrate the lungs to be symmetrically aerated without evidence of mass, infiltrate or effusion. The cardiomediastinal contours are unremarkable. Osseous structures are intact. CONCLUSION: 1. No acute cardiopulmonary disease. Electronically signed by: Satnam Hart MD 08/17/2017 2:39 PM EDT
[2017-08-17 14:45] VITALS: O2SAT 98
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
[2017-08-17 14:51] VITALS: BP 128/73; PULSE 116; RESP 20; O2SAT 94
[2017-08-17 14:59] LABS: CHLORIDE 105 MEQ/L (98-107); SODIUM (NA) 136 MEQ/L (136-145)
[2017-08-17 15:03] LABS: ALBUMIN 3.7 GM/DL (3.4-5.0); BLOOD UREA NITROGEN 13 MG/DL (7-18); GLUCOSE,RANDOM 107 MG/DL (74-106); MAGNESIUM 1.9 MG/DL (1.5-2.5)
[2017-08-17 15:06] LABS: ALT (GPT) 24 U/L (12-78); AST (GOT) 18 U/L (15-37); GLOMERULAR FILTRATION RATE 72 ML/MIN (>89)
[2017-08-17 15:07] LABS: AUTOMATED NEUTROPHIL # 13.1 TH/MM3 (1.8-7.7); BASOPHIL # 0.3 TH/MM3 (0-0.2); BASOPHIL % 1.9 % (0.0-2.0); EOSINOPHIL % 0.1 % (0.0-4.0); HEMATOCRIT 44.9 % (39.0-51.0); HEMOGLOBIN 15.9 GM/DL (13.0-17.0); LYMPH % 4.6 % (9.0-44.0); LYMPHOCYTE # 0.7 TH/MM3 (1.0-4.8); MEAN CELL VOLUME 85.8 FL (80.0-100.0); MEAN CORPUSCULAR HEMOGLOBIN 30.4 PG (27.0-34.0); MEAN CORPUSCULAR HGB CONC 35.4 % (32.0-36.0); MEAN PLATELET VOLUME 7.5 FL (7.0-11.0); MONO % 5.7 % (0.0-8.0); MONOCYTE # 0.9 TH/MM3 (0-0.9); NEUT % 87.7 % (16.0-70.0); PLATELET COUNT 239 TH/MM3 (150-450); RED BLOOD COUNT 5.23 MIL/MM3 (4.50-5.90); RED CELL DISTRIBUTION WIDTH 12.3 % (11.6-17.2); TOTAL BILIRUBIN ADULT 0.6 MG/DL (0.2-1.0); TOTAL PROTEIN 7.3 GM/DL (6.4-8.2)
[2017-08-17 15:09] LABS: ALKALINE PHOSPHATASE 95 U/L (45-117)
[2017-08-17 15:11] LABS: TROPONIN I LESS THAN 0.02 NG/ML (0.02-0.05)
[2017-08-17 15:47] VITALS: BP 142/83; PULSE 110; RESP 20; O2SAT 97
[2017-08-17] MEDS ORDERED: CLINDAMYCIN 900 MG/NS PREMIX 50 ML IV ONE (16:00)
[2017-08-17 16:05] LABS: BILIRUBIN, URINE NEG (NEG); BLOOD, URINE NEG (NEG); GLUCOSE,URINE NEG (NEG); KETONE, URINE NEG (NEG); NITRITE,URINE NEG (NEG); PH, URINE 5.5 (5.0-8.5); URINE COLOR YELLOW (YELLW/STRAW); URINE LEUKOCYTE ESTERASE NEG (NEG)
[2017-08-17 16:10] LABS: WBC, URINE 0-2 /hpf (0-5)
[2017-08-17 16:11] LABS: RBC, URINE 0-3 /hpf (0-3)
[2017-08-17] MEDS ORDERED: KETOROLAC TROMETHAMINE 30 MG/ML (IVP) VIAL IV PUSH ONE (16:30)
[2017-08-17] MEDS ORDERED: ONDANSETRON ODT 4 MG TAB PO ONE (16:30)
[2017-08-17] MEDS ORDERED: DIPHTH/TETANUS/ACEL PERTUSSIS (BOOSTER) 0.5 ML VIAL/PFS IM ONE (16:45)
[2017-08-17] MEDS ORDERED: PIPERACIL-TAZO 4.5 GM PREMIX 100 ML IV ONE (17:00)
[2017-08-17 17:09] VITALS: BP 146/80; PULSE 105; RESP 20; TEMP 100; O2SAT 95
[2017-08-17] MEDS ORDERED: SODIUM CHLORIDE 0.9% FLUSH 10 ML FLUSH IV FLUSH PRN (17:45)
[2017-08-17] MEDS ORDERED: ONDANSETRON ODT 4 MG TAB SL PRN (17:45)
[2017-08-17] MEDS ORDERED: MORPHINE SULFATE 2 MG/ML SYRINGE IV PUSH PRN (17:45)
[2017-08-17] MEDS ORDERED: NALOXONE HCL 0.4 MG/ML AMP IV PUSH PRN (17:45)
[2017-08-17] MEDS ORDERED: SENNOSIDES 8.6 MG TAB PO PRN (17:45)
[2017-08-17] MEDS ORDERED: BISACODYL 10 MG SUPP RECTAL PRN (17:45)
[2017-08-17] MEDS ORDERED: TEMAZEPAM 15 MG CAP PO PRN (17:45)
[2017-08-17] MEDS ORDERED: LACTULOSE SYRUP 20 GM/30 ML CUP PO PRN (17:45)
[2017-08-17] MEDS ORDERED: MAGNESIUM HYDROXIDE SUSP 30 ML CUP PO PRN (17:45)
--- NOTE | 2017-08-17 17:58 | HHI.HP ---
HPI Service [facility] Hospitalists Primary Care Physician Roseline Garcia MD Admission Diagnosis Sepsis (Cellulitis of Hand) Chief Complaint: sore throat fever swelling rt hand Travel History International Travel<30 Days: No Contact w/Intl Traveler <30 Da: No Traveled to Known Affected Are: No Sepsis Criteria SIRS Criteria (2 or more): Temp > 100.9 or < 96.8, Heart rate over 90, WBC > 55041, < 4000 or > 10% bands Sepsis Criteria (SIRS+source): Infect source susp/known History of Present Illness patient has been having sore throat fever swelling hand and on exam has cellulitis about the right second metacarpophalangeal articulation. There is lymphangitic streaks extending proximally. The patient meets criteria for sepsis and the source in this case is skin as found to have increase heart rate,fever and elevated WBC count. No significant improvement has been observed with the patient has been in the ER with his heart rate still about 110 after 2.5L NS. The erythema about the right hand has progressed during his ED stay and started on IV antibiotics Zosyn and clindamycin The patient states no fight bite/potential injury from contact with the human mouth precipitated the hand cellulitis. The mother notes that the patient was working with his tools and the injury was related to that. In ER did get dose of tetanus. Call placed to Dr Marcelo for hand surgery service at 1700. Request to admit to [facility]. Request for ultrasound to rule out abscess. US ordered Review of Systems Ears, nose, mouth, throat: COMPLAINS OF: Throat pain Respiratory: COMPLAINS OF: Cough Musculoskeletal: COMPLAINS OF: Joint Swelling Past Family Social History Past Medical History colon surgery for perferation GERD depression Past Surgical History colon surgery Reported Medications Probiotic (Lactobacillus Acidophilus) 10 Billion Cell Cap 1 Cap PO TIDAC Ranitidine (Ranitidine HCl) 150 Mg Cap 150 Mg PO DAILY Fluoxetine (Fluoxetine HCl) 20 Mg Capsule 20 Mg PO DAILY Allergies: Coded Allergies: ciprofloxacin (Unverified Allergy, Severe, RASH, 08/17/17) Social History NS,ND Physical Exam Vital Signs Vital Signs Date Time Temp Pulse Resp B/P (MAP) Pulse Ox O2 Delivery O2 Flow Rate FiO2 08/17/17 17:09 100.0 105 20 146/80 (102) 95 08/17/17 15:47 110 20 142/83 (102) 97 08/17/17 14:51 116 20 128/73 (91) 94 08/17/17 14:45 98 08/17/17 14:20 123 08/17/17 14:08 102.7 130 16 141/78 (99) 96 Physical Exam GENERAL: This is a well-nourished, well-developed patient, in no apparent distress. SKIN: No rashes, ecchymoses or lesions. Cool and dry.erythematous tender rt hand HEAD: Atraumatic. Normocephalic. No temporal or scalp tenderness. EYES: Pupils equal round and reactive. Extraocular motions intact. No scleral icterus. No injection or drainage. ENT: Nose without bleeding, purulent drainage or septal hematoma. Throat without erythema, tonsillar hypertrophy or exudate. Uvula midline. Airway patent. NECK: Trachea midline. No JVD or lymphadenopathy. Supple, nontender, no meningeal signs. CARDIOVASCULAR: Regular rate and rhythm without murmurs, gallops, or rubs. RESPIRATORY: Clear to auscultation. Breath sounds equal bilaterally. No wheezes , rales, or rhonchi. GASTROINTESTINAL: Abdomen soft, non-tender, nondistended. No hepato-splenomegaly , or palpable masses. No guarding. MUSCULOSKELETAL: Extremities without clubbing, cyanosis, or edema. No joint tenderness, effusion, or edema noted. No calf tenderness. Negative Homans sign bilaterally. NEUROLOGICAL: Awake and alert. Cranial nerves II through XII intact. Motor and sensory grossly within normal limits. Five out of 5 muscle strength in all muscle groups. Normal speech. Laboratory Laboratory Tests Test 08/17/17 14:25 08/17/17 16:00 White Blood Count 15.0 Red Blood Count 5.23 Hemoglobin 15.9 Hematocrit 44.9 Mean Corpuscular Volume 85.8 Mean Corpuscular Hemoglobin 30.4 Mean Corpuscular Hemoglobin Concent 35.4 Red Cell Distribution Width 12.3 Platelet Count 239 Mean Platelet Volume 7.5 Neutrophils (%) (Auto) 87.7 Lymphocytes (%) (Auto) 4.6 Monocytes (%) (Auto) 5.7 Eosinophils (%) (Auto) 0.1 Basophils (%) (Auto) 1.9 Neutrophils # (Auto) 13.1 Lymphocytes # (Auto) 0.7 Monocytes # (Auto) 0.9 Eosinophils # (Auto) 0.0 Basophils # (Auto) 0.3 CBC Comment DIFF FINAL Differential Comment Blood Urea Nitrogen 13 Creatinine 1.10 Random Glucose 107 Total Protein 7.3 Albumin 3.7 Calcium Level 9.0 Magnesium Level 1.9 Alkaline Phosphatase 95 Aspartate Amino Transf (AST/SGOT) 18 Alanine Aminotransferase (ALT/SGPT) 24 Total Bilirubin 0.6 Sodium Level 136 Potassium Level 3.8 Chloride Level 105 Carbon Dioxide Level 26.0 Anion Gap 5 Estimat Glomerular Filtration Rate 72 Lactic Acid Level 1.3 Troponin I LESS THAN 0.02 Urine Collection Type CATH Urine Color YELLOW Urine Turbidity CLEAR Urine pH 5.5 Urine Specific Banks 1.020 Urine Protein NEG Urine Glucose (UA) NEG Urine Ketones NEG Urine Occult Blood NEG Urine Nitrite NEG Urine Bilirubin NEG Urine Urobilinogen 0.2 Urine Leukocyte Esterase NEG Urine RBC 0-3 Urine WBC 0-2 Microscopic Urinalysis Comment CATH-CULT NOT IND Urine Collection Time 16:00 Date/Time Source Procedure Growth Status 08/17/17 14:30 Blood Peripheral Aerobic Blood Culture Pending Received 08/17/17 14:30 Blood Peripheral Anaerobic Blood Culture Pending Received 08/17/17 14:30 Nasal Aspirate Influenza Types A,B Antigen ([facility]) - Final NEGATIVE FOR FLU A AND B ANTIGEN.... Complete Result Diagram: 08/17/17 1425 08/17/17 1425 Imaging Last 24 hours Impressions Chest X-Ray 08/17/17 1419 Signed Impressions: CONCLUSION: 1. No acute cardiopulmonary disease. Course start IV antibiotics Caprini VTE Risk Assessment Caprini VTE Risk Assessment: No/Low Risk (score <= 1) Caprini Risk Assessment Model Point Value = 1 Point Value = 2 Point Value = 3 Point Value = 5 Age 41-60 Minor surgery BMI > 25 kg/m2 Swollen legs Varicose veins or History of unexplained or recurrent spontaneous Oral contraceptives or hormone replacement Sepsis (< 1 month) Serious lung disease, including pneumonia (< 1 month) Abnormal pulmonary function Acute myocardial infarction Congestive heart failure (< 1 month) History of inflammatory bowel disease Medical patient at bed rest Age 61-74 Arthroscopic surgery Major open surgery (> 45 min) Laparoscopic surgery (> 45 min) Malignancy Confined to bed (> 72 hours) Immobilizing plaster cast Central venous access Age >= 75 History of VTE Family history of VTE Factor V Leiden Prothrombin [id number] Lupus anticoagulant Anticardiolipin antibodies Elevated serum homocysteine Heparin-induced thrombocytopenia Other congenital or acquired thrombophilia Stroke (< 1 month) Elective arthroplasty Hip, pelvis, or leg fracture Acute spinal cord injury (< 1 month) Prophylaxis Regimen Total Risk Factor Score Risk Level Prophylaxis Regimen 0-1 Low Early ambulation 2 Moderate Order ONE of the following: *Sequential Compression Device (SCD) *Heparin 5000 units SQ BID 3-4 Higher Order ONE of the following medications: *Heparin 5000 units SQ TID *Enoxaparin/Lovenox 40 mg SQ daily (WT < 150 kg, CrCl > 30 mL/min) *Enoxaparin/Lovenox 30 mg SQ daily (WT < 150 kg, CrCl > 10-29 mL/min) *Enoxaparin/Lovenox 30 mg SQ BID (WT < 150 kg, CrCl > 30 mL/min) AND/OR *Sequential Compression Device (SCD) 5 or more Highest Order ONE of the following medications: *Heparin 5000 units SQ TID (Preferred with Epidurals) *Enoxaparin/Lovenox 40 mg SQ daily (WT < 150 kg, CrCl > 30 mL/min) *Enoxaparin/Lovenox 30 mg SQ daily (WT < 150 kg, CrCl > 10-29 mL/min) *Enoxaparin/Lovenox 30 mg SQ BID (WT < 150 kg, CrCl > 30 mL/min) AND *Sequential Compression Device (SCD) Assessment and Plan Problem List: (1) Cellulitis of right hand ICD Codes: L03.113 - Cellulitis of right upper limb Status: Acute Plan: consult ortho hand IV antibiotics (2) Sepsis affecting skin ICD Codes: A41.9 - Sepsis, unspecified organism Status: Acute Plan: IV antibiotics Assessment and Plan further plan as case develops Code Status full Discussed Condition With patient Physician Certification 2 Midnight Certification Type: Admission for Inpatient Services Order for Inpatient Services The services are ordered in accordance with Medicare regulations or non- Medicare payer requirements, as applicable. In the case of services not specified as inpatient-only, they are appropriately provided as inpatient services in accordance with the 2-midnight benchmark. Estimated LOS (days): 3 3 days is the estimated time the patient will need to remain in the hospital, assuming treatment plan goals are met and no additional complications. Post-Hospital Plan: Not yet determined Samuel Hunt MD August 17, 2017 17:58
[2017-08-17 20:00] VITALS: BP 121/68; PULSE 88; RESP 14; TEMP 98; O2SAT 95
[2017-08-17] MEDS: SODIUM CHLORIDE 0.9% FLUSH 10 ML FLUSH IV FLUSH SCH (20:35)
[2017-08-17] MEDS: DOCUSATE SODIUM 50 MG/SENNA 8.6 MG TAB PO SCH (20:35)
--- NOTE | 2017-08-17 20:57 | RADRPT ---
EXAM DATE: 08/17/2017 7:03 PM EDT AGE/SEX: 47 years / Male INDICATIONS: Right hand pain, swelling and redness. Please evaluate for possible abscess. CLINICAL DATA: This is the patient's initial encounter. Patient reports that signs and symptoms have been present for 1 week and indicates a pain score of 5/10. Location: Laterality: MEDICAL/SURGICAL HISTORY: . Former smoker. . Colon resection. COMPARISON: No prior [place] exams available for comparison. No external comparison. FINDINGS: A targeted ultrasound examination was performed in the region of pain, redness and swelling. This dem onstrates soft tissue swelling and mild inhomogeneity with no focal fluid collection. CONCLUSION: 1. Soft tissue swelling with no visualized abscess. Electronically signed by: Km Eubanks MD 08/17/2017 8:56 PM EDT
[2017-08-18] VITALS: BP 115/58; PULSE 90; RESP 15; TEMP 99; O2SAT 94
[2017-08-18] MEDS: CLINDAMYCIN 600 MG/NS PREMIX 50 ML IV SCH ×3 (00:18→15:31)
[2017-08-18] MEDS: PIPERACIL-TAZO 4.5 GM PREMIX 100 ML IV SCH ×3 (01:08→17:04)
[2017-08-18 04:00] VITALS: BP 123/61; PULSE 90; RESP 16; TEMP 99; O2SAT 97
[2017-08-18 06:08] LABS: EOSINOPHIL % 0.2 % (0.0-4.0); HEMATOCRIT 38.3 % (39.0-51.0); HEMOGLOBIN 13.5 GM/DL (13.0-17.0); LYMPH % 13.6 % (9.0-44.0); LYMPHOCYTE # 1.4 TH/MM3 (1.0-4.8); MEAN CELL VOLUME 86.5 FL (80.0-100.0); MEAN CORPUSCULAR HEMOGLOBIN 30.5 PG (27.0-34.0); MEAN CORPUSCULAR HGB CONC 35.2 % (32.0-36.0); MEAN PLATELET VOLUME 7.9 FL (7.0-11.0); MONO % 9.1 % (0.0-8.0); MONOCYTE # 0.9 TH/MM3 (0-0.9); NEUT % 77.1 % (16.0-70.0); PLATELET COUNT 201 TH/MM3 (150-450); RED BLOOD COUNT 4.42 MIL/MM3 (4.50-5.90); RED CELL DISTRIBUTION WIDTH 12.3 % (11.6-17.2); WHITE BLOOD COUNT 10.3 TH/MM3 (4.0-11.0)
[2017-08-18 07:50] VITALS: BP 106/62; PULSE 71; RESP 20; TEMP 97.2; O2SAT 95
[2017-08-18] MEDS: DOCUSATE SODIUM 50 MG/SENNA 8.6 MG TAB PO SCH (08:25)
[2017-08-18] MEDS: SODIUM CHLORIDE 0.9% FLUSH 10 ML FLUSH IV FLUSH SCH (08:26)
[2017-08-18] MEDS: LACTOBACILLUS ACIDOPHILUS TAB PO SCH ×3 (08:26→15:30)
[2017-08-18] MEDS ORDERED: FAMOTIDINE 20 MG TAB PO SCH (09:00)
[2017-08-18] MEDS ORDERED: FLUoxetine HCL 20 MG CAP PO SCH (09:00)
[2017-08-18 11:30] VITALS: BP 121/67; PULSE 68; RESP 20; TEMP 98.5; O2SAT 96
--- NOTE | 2017-08-18 11:51 | HHI.PR ---
Subjective Remarks Patient feeling better,hand swelling has decreased and ultrasound showed swelling still waiting for hand doctor to see Objective Vitals GENERAL: SKIN: Warm and dry. swelling much improved still some redness HEAD: Atraumatic. Normocephalic. EYES: Pupils equal and round. No scleral icterus. No injection or drainage. ENT: No nasal bleeding or discharge. Mucous membranes pink and moist. NECK: Trachea midline. No JVD. CARDIOVASCULAR: Regular rate and rhythm. RESPIRATORY: No accessory muscle use. Clear to auscultation. Breath sounds equal bilaterally. GASTROINTESTINAL: Abdomen soft, non-tender, nondistended. Hepatic and splenic margins not palpable. MUSCULOSKELETAL: Extremities without clubbing, cyanosis, or edema. No obvious deformities. NEUROLOGICAL: Awake and alert. No obvious cranial nerve deficits. Motor grossly within normal limits. Five out of 5 muscle strength in the arms and legs. Normal speech. PSYCHIATRIC: Appropriate mood and affect; insight and judgment normal. Vital Signs Date Time Temp Pulse Resp B/P (MAP) Pulse Ox O2 Delivery O2 Flow Rate FiO2 08/18/17 11:30 98.5 68 20 121/67 (85) 96 08/18/17 07:50 97.2 71 20 106/62 (77) 95 08/18/17 04:00 99.0 90 16 123/61 (81) 97 08/18/17 00:00 99.0 90 15 115/58 (77) 94 08/17/17 20:00 98.0 88 14 121/68 (85) 95 08/17/17 20:00 98.0 88 14 121/68 (85) 95 08/17/17 18:21 08/17/17 17:09 100.0 105 20 146/80 (102) 95 08/17/17 15:47 110 20 142/83 (102) 97 08/17/17 14:51 116 20 128/73 (91) 94 08/17/17 14:45 98 08/17/17 14:20 123 08/17/17 14:08 102.7 130 16 141/78 (99) 96 Result Diagram: 08/18/17 0510 08/17/17 1425 Imaging Last 24 hours Impressions Chest X-Ray 08/17/17 1419 Signed Impressions: CONCLUSION: 1. No acute cardiopulmonary disease. A/P Problem List: (1) Cellulitis of right hand ICD Codes: L03.113 - Cellulitis of right upper limb Status: Acute Plan: consult ortho hand IV antibiotics WBC count improved swelling improved symptoms all improved (2) Sepsis affecting skin ICD Codes: A41.9 - Sepsis, unspecified organism Status: Acute Plan: IV antibiotics resolving Assessment and Plan will return later today Samuel Hunt MD August 18, 2017 11:51
[2017-08-18 15:37] VITALS: BP 124/68; PULSE 70; RESP 20; TEMP 98.2; O2SAT 96
--- NOTE | 2017-08-18 16:11 | MB ---
cc: Rowan Marcelo MD DATE: 08/18/2017 DATE OF CONSULTATION: 08/18/2017. REQUESTING PHYSICIAN: Patient is being seen at the request of Dr. Samuel Hunt. REASON FOR CONSULTATION: Swelling of the right index finger MP joint. HISTORY OF PRESENT ILLNESS: The patient is a 47-year-old male who, several days prior to admission, noted soreness around his right index finger MP joint. The patient does note that he did scratch it several days ago. The patient began to feel worse, came to the emergency room where it was noted that he had met all the criteria for sepsis and had streaking redness of the skin. On admission, his white count was 15.0 with 87.7% neutrophils. This morning it was down to 10.3 with the absolute neutrophil count having gone down from 13,000, down to 8000, still with a positive shift. Microbiology so far is negative. PAST MEDICAL HISTORY: The patient is otherwise well. REVIEW OF SYSTEMS: Positive for throat pain, cough and joint swelling, otherwise negative in detail. PAST MEDICAL AND SURGICAL HISTORY: He had colon surgery for perforation. History is also positive for gastroesophageal reflux disease. MEDICATIONS: Listed on the chart. ALLERGIES: INCLUDE CIPROFLOXACIN. SOCIAL HISTORY: He does not smoke and does not consume alcohol. PHYSICAL EXAMINATION: GENERAL: The patient is lying comfortably in bed. HEENT: His extraocular muscles are intact. His pupils are equal, round and reactive to light. His mouth is clear. NECK: Supple, without masses. LUNGS: Clear. HEART: Regular rate and rhythm. EXTREMITIES: Reveals full range of motion of the joints of his right hand. There is a healed scab without any evidence of swelling or redness on the dorsal aspect of the index MP joint. Compression of the joint does not cause any pain. The redness is no longer present. NEUROLOGIC: He is otherwise intact. IMAGING STUDIES: Review of the sonogram indicates a negative exam for abscess. IMPRESSION: The patient has a resolving cellulitis of the right hand. There is no evidence of any fluid collection or abscess formation. PLAN: The patient at this point appears to be safe for discharge on oral antibiotics. He can followup with me in my office next week as needed, although the infection appears to have almost completely resolved. MD SOWMYA Stinson/CRISTINA , 03:40 PM , 04:11 PM
[2017-08-18] MEDS ORDERED: CLIN300C5 PO (17:29)
[2017-08-18] MEDS ORDERED: AUGM875T3 PO (17:29)
--- NOTE | 2017-08-18 17:33 | HHI.DS ---
Discharge Summary Admission Date August 17, 2017 at 17:09 Admitting Diagnosis Sepsis (Cellulitis of Hand) (1) Cellulitis of right hand Diagnosis: Principal ICD Codes: L03.113 - Cellulitis of right upper limb Status: Acute (2) Sepsis affecting skin Diagnosis: Principal ICD Codes: A41.9 - Sepsis, unspecified organism Status: Acute Consultants hand surgeon Brief History patient has been having sore throat fever swelling hand and on exam has cellulitis about the right second metacarpophalangeal articulation. There is lymphangitic streaks extending proximally. The patient meets criteria for sepsis and the source in this case is skin as found to have increase heart rate,fever and elevated WBC count. No significant improvement has been observed with the patient has been in the ER with his heart rate still about 110 after 2.5L NS. The erythema about the right hand has progressed during his ED stay and started on IV antibiotics Zosyn and clindamycin The patient states no fight bite/potential injury from contact with the human mouth precipitated the hand cellulitis. The mother notes that the patient was working with his tools and the injury was related to that. In ER did get dose of tetanus. Call placed to Dr Marcelo for hand surgery service at 1700. Request to admit to [facility]. Request for ultrasound to rule out abscess. US ordered CBC/BMP: 08/18/17 0510 08/17/17 1425 Significant Findings Laboratory Tests Test 08/17/17 14:25 08/17/17 16:00 08/18/17 05:10 White Blood Count 15.0 TH/MM3 (4.0-11.0) Neutrophils (%) (Auto) 87.7 % (16.0-70.0) 77.1 % (16.0-70.0) Lymphocytes (%) (Auto) 4.6 % (9.0-44.0) Neutrophils # (Auto) 13.1 TH/MM3 (1.8-7.7) 8.0 TH/MM3 (1.8-7.7) Lymphocytes # (Auto) 0.7 TH/MM3 (1.0-4.8) Basophils # (Auto) 0.3 TH/MM3 (0-0.2) Random Glucose 107 MG/DL (74-106) Estimat Glomerular Filtration Rate 72 ML/MIN (>89) Troponin I LESS THAN 0.02 NG/ML Red Blood Count 4.42 MIL/MM3 (4.50-5.90) Hematocrit 38.3 % (39.0-51.0) Monocytes (%) (Auto) 9.1 % (0.0-8.0) PE at Discharge GENERAL: SKIN: Warm and dry.almost complete resolution to swelling HEAD: Atraumatic. Normocephalic. EYES: Pupils equal and round. No scleral icterus. No injection or drainage. ENT: No nasal bleeding or discharge. Mucous membranes pink and moist. NECK: Trachea midline. No JVD. CARDIOVASCULAR: Regular rate and rhythm. RESPIRATORY: No accessory muscle use. Clear to auscultation. Breath sounds equal bilaterally. GASTROINTESTINAL: Abdomen soft, non-tender, nondistended. Hepatic and splenic margins not palpable. MUSCULOSKELETAL: Extremities without clubbing, cyanosis, or edema. No obvious deformities. NEUROLOGICAL: Awake and alert. No obvious cranial nerve deficits. Motor grossly within normal limits. Five out of 5 muscle strength in the arms and legs. Normal speech. PSYCHIATRIC: Appropriate mood and affect; insight and judgment normal. Hospital Course Patient started on IV zosyn and clindamycin for rt hand cellulits with almost total resolution of swelling ultrasound hand showed only swelling will discharge on augmentin and clindamycin both called into [facility] follow up with hand surgeon prn and pcp . SIRS labs and heart rate returned to normal. Pt Condition on Discharge: Good Discharge Disposition: Discharge Home Discharge Instructions DIET: Follow Instructions for: As Tolerated, No Restrictions Activities you can perform: Regular-No Restrictions New Medications: Amoxicillin-Clavulanate (Augmentin) 875-125 Mg Tab 1 TAB PO BID for Infection for 7 Days, #14 TAB 0 Refills Clindamycin (Clindamycin) 300 Mg Cap 300 MG PO TID for Infection for 5 Days, #15 CAP 0 Refills Continued Medications: Fluoxetine (Fluoxetine) 20 Mg Capsule 20 MG PO DAILY, #30 CAP 0 Refills Lactobacillus Acidophilus (Probiotic) 10 Billion Cell Cap 1 CAP PO TIDAC for Nutritional Supplement, #90 CAP 0 Refills Ranitidine (Ranitidine) 150 Mg Cap 150 MG PO DAILY, #30 CAP 0 Refills Samuel Hunt MD August 18, 2017 17:33
== END 2017-08-18 18:07 | disposition home or self-care (01) | DRG 872 ==
LOC: PHED 14:06 → PHEDA 17:09 → PH3A 18:14
PROVIDERS: ADMIT Internal Medicine; ATTEND Internal Medicine
DX: A41.9 Sepsis, unspecified organism (principal); L03.113 Cellulitis of right upper limb; K21.9 Gastro-esophageal reflux disease without esophagitis; M51.36 Other intervertebral disc degeneration, lumbar region; J02.9 Acute pharyngitis, unspecified; R05 Cough; F32.9 Major depressive disorder, single episode, unspecified; F41.9 Anxiety disorder, unspecified; Z87.891 Personal history of nicotine dependence; Z88.1 Allergy status to other antibiotic agents
CPT/HCPCS: 71046; 76882; 80053; 81001; 83605; 83735; 84484; 85025; 87040; 87804; 90471; 90715; 96361; 96365; 96375; J1885; J2543; J7030